=== PATIENT | female | born 1965 | race African-American/Black ===

== ENCOUNTER 2016-06-05 21:08 | Emergency (ER) | payer MEDICAID ==
[2016-06-05] MEDS ORDERED: ONDANSETRON 4 MG TAB.RAPDIS PO ONE (21:43)
--- NOTE | 2016-06-05 21:44 | ER Document Report ---
ED Medical Screen (RME) - General Chief Complaint: Constipation Stated Complaint: WEAKNESS Time seen by provider: 21:41 Mode of Arrival: Ambulatory Information source: Patient Notes: 51-year-old female complaining of nausea, vomiting, and diarrhea with low abdominal pain discomfort.. sHe does not feel well. She has a history of C. difficile and MS. TRAVEL OUTSIDE OF THE [place] IN LAST 30 DAYS: No - Related Data Allergies/Adverse Reactions: cefazolin sodium [From Ancef] Allergy (Intermediate, Verified 06/05/16 21:45) Nausea latex [Latex] Allergy (Verified 06/05/16 21:45) rash Past Medical History - Past Medical History Cardiac Medical History: Reports: Hx Hypertension Denies: Hx Coronary Artery Disease, Hx Heart Attack Pulmonary Medical History: Denies: Hx Asthma, Hx Bronchitis, Hx COPD, Hx Pneumonia Neurological Medical History: Reports: Hx Cerebrovascular Accident - july 2015 , Hx Migraine. Denies: Hx Seizures Endocrine Medical History: Reports: Hx Hypothyroidism GI Medical History: Reports: Hx Irritable Bowel. Denies: Hx Crohn's Disease, Hx Gastroesophageal Reflux Disease, Hx Hiatal Hernia, Hx Liver Failure, Hx Ulcer Musculoskeltal Medical History: Reports Hx Arthritis, Denies Hx Fibromyalgia, Denies Hx Multiple Sclerosis, Denies Hx Muscular Dystrophy, Reports Hx Muscle Spasm, Reports Hx Musculoskeletal Deformity, Reports Hx Musculoskeletal Trauma Psychiatric Medical History: Reports: Hx Anxiety Denies: Hx Bipolar Disorder, Hx Dementia, Hx Depression, Hx Post Traumatic Stress Disorder, Hx Schizophrenia Traumatic Medical History: Reports: Hx Fractures Infectious Medical History: Reports: Hx C-Diff. Denies: Hx HIV Past Surgical History: Reports: Hx Appendectomy, Hx Breast Surgery - reduction, Hx Section - x 2, Hx Cholecystectomy, Hx Gynecologic Surgery - D & C, Hx Orthopedic Surgery - right ankle, lumbar spine, Hx Thyroid Surgery - parathyroid and part of thyroid, Hx Tubal Ligation. Denies: Hx Bowel Surgery, Hx Colostomy, Hx Coronary Artery Bypass Graft, Hx Gastric Bypass Surgery, Hx Herniorrhaphy, Hx Hysterectomy, Hx Mastectomy, Hx Pacemaker, Hx Tonsillectomy - Immunizations Immunizations up to date: Yes Hx Diphtheria, Pertussis, Tetanus Vaccination: Yes Physical Exam - Vital signs Vitals: Temp Pulse Resp BP Pulse Ox 98.0 F 91 16 121/78 100 06/05/16 21:27 06/05/16 21:27 06/05/16 21:27 06/05/16 21:27 06/05/16 21:27 Course - Vital Signs Vital signs: Temp Pulse Resp BP Pulse Ox 98.0 F 91 16 121/78 100 06/05/16 21:27 06/05/16 21:27 06/05/16 21:27 06/05/16 21:27 06/05/16 21:27
[2016-06-05 22:27] LABS: ABSOLUTE BASOPHILS # (AUTO) 0.1 10^3/uL (0.0-0.2); ABSOLUTE EOSINOPHILS # (AUTO) 0.5 10^3/uL (0.0-0.6); ABSOLUTE LYMPHOCYTES (AUTO) 4.9 10^3/uL (0.5-4.7); ABSOLUTE MONOCYTES (AUTO) 0.8 10^3/uL (0.1-1.4); ABSOLUTE NEUT (AUTO) 4.5 10^3/uL (1.7-8.2); BASOPHILS % (AUTO) 0.7 % (0-2); EOSINOPHILS % (AUTO) 4.4 % (0-6); LYMPHOCYTES % (AUTO) 45.4 % (13-45); MEAN CORPUSCULAR HEMOGLOBIN 28.4 pg (27.0-33.4); MEAN CORPUSCULAR HGB CONC 33.3 g/dL (32.0-36.0); MEAN CORPUSCULAR VOLUME 85 fl (80-97); MONOCYTES % (AUTO) 7.6 % (3-13); RED BLOOD COUNT 4.22 10^6/uL (3.72-5.28); RED CELL DISTRIBUTION WIDTH 13.6 % (11.5-14.0); SEGMENTED NEUTROPHILS % (AUTO) 41.9 % (42-78); WHITE BLOOD COUNT 10.7 10^3/uL (4.0-10.5)
[2016-06-05 22:39] LABS: ALANINE AMINOTRANSFERASE 25 U/L (9-52); ALBUMIN 4.8 g/dL (3.5-5.0); ALKALINE PHOSPHATASE 97 U/L (38-126); ANION GAP 14 (5-19); ASPARTATE AMINO TRANSFERASE 19 U/L (14-36); BILIRUBIN,TOTAL 0.3 mg/dL (0.2-1.3); BLOOD UREA NITROGEN 20 mg/dL (7-20); CALCIUM 9.8 mg/dL (8.4-10.2); CARBON DIOXIDE 31 mmol/L (22-30); CHLORIDE 99 mmol/L (98-107); CREATININE RESULT 0.96 mg/dL (0.52-1.25); GLUCOSE 72 mg/dL (75-110); POTASSIUM 3.5 mmol/L (3.6-5.0); TOTAL PROTEIN 7.8 g/dL (6.3-8.2)
[2016-06-05 22:39] LABS: APPEARANCE,URINE SLIGHTLY-CLOUDY; BILIRUBIN,URINE NEGATIVE (NEGATIVE); GLUCOSE, URINE NEGATIVE (NEGATIVE); KETONES,URINE TRACE mg/dL (NEGATIVE); LEUKOCYTE ESTERASE,URINE LARGE (NEGATIVE); NITRITE,URINE NEGATIVE (NEGATIVE); PROTEIN,URINE NEGATIVE (NEGATIVE); URINE SPECIFIC GRAVITY 1.033; UROBILINOGEN,URINE NEGATIVE mg/dL (<2.0)
--- NOTE | 2016-06-06 00:37 | ER Document Report ---
ED General - General Chief Complaint: Constipation Stated Complaint: WEAKNESS Mode of Arrival: Ambulatory Notes: Patient is a 51-year-old female presents for complaints of constipation. She says that she's also been a little bit dizzy. She does have MS. She's diagnosed back in November. She says it's been 2 weeks since she's had a normal bowel movement. Today she drinks prune juice which latter to have some watery stools. No blood in her stool. She did have C. difficile 2 years ago. No fevers. No vomiting. No diarrhea. No new focal neurologic deficits. Mild abdominal pain. No other complaints at this time. She says she took magnesium saturates last week but has not taken anything else sense for her constipation other than the prune juice. She has been passing gas without difficulty. TRAVEL OUTSIDE OF THE [place] IN LAST 30 DAYS: No - Related Data Allergies/Adverse Reactions: cefazolin sodium [From Ancef] Allergy (Intermediate, Verified 06/05/16 21:45) Nausea latex [Latex] Allergy (Verified 06/05/16 21:45) rash Past Medical History - General Information source: Patient - Social History Smoking Status: Current Every Day Smoker Chew tobacco use (# tins/day): No Frequency of alcohol use: Social Drug Abuse: None Family History: CAD, CVA, Hyperlipidemia, Hypertension Patient has suicidal ideation: No Patient has homicidal ideation: No - Past Medical History Cardiac Medical History: Reports: Hx Hypertension Denies: Hx Coronary Artery Disease, Hx Heart Attack Pulmonary Medical History: Denies: Hx Asthma, Hx Bronchitis, Hx COPD, Hx Pneumonia Neurological Medical History: Reports: Hx Cerebrovascular Accident - july 2015 , Hx Migraine. Denies: Hx Seizures Endocrine Medical History: Reports: Hx Hypothyroidism GI Medical History: Reports: Hx Irritable Bowel. Denies: Hx Crohn's Disease, Hx Gastroesophageal Reflux Disease, Hx Hiatal Hernia, Hx Liver Failure, Hx Ulcer Musculoskeltal Medical History: Reports Hx Arthritis, Denies Hx Fibromyalgia, Denies Hx Multiple Sclerosis, Denies Hx Muscular Dystrophy, Reports Hx Muscle Spasm, Reports Hx Musculoskeletal Deformity, Reports Hx Musculoskeletal Trauma Psychiatric Medical History: Reports: Hx Anxiety Denies: Hx Bipolar Disorder, Hx Dementia, Hx Depression, Hx Post Traumatic Stress Disorder, Hx Schizophrenia Traumatic Medical History: Reports: Hx Fractures Infectious Medical History: Reports: Hx C-Diff. Denies: Hx HIV Past Surgical History: Reports: Hx Appendectomy, Hx Breast Surgery - reduction, Hx Section - x 2, Hx Cholecystectomy, Hx Gynecologic Surgery - D & C, Hx Orthopedic Surgery - right ankle, lumbar spine, Hx Thyroid Surgery - parathyroid and part of thyroid, Hx Tubal Ligation. Denies: Hx Bowel Surgery, Hx Colostomy, Hx Coronary Artery Bypass Graft, Hx Gastric Bypass Surgery, Hx Herniorrhaphy, Hx Hysterectomy, Hx Mastectomy, Hx Pacemaker, Hx Tonsillectomy - Immunizations Immunizations up to date: Yes Hx Diphtheria, Pertussis, Tetanus Vaccination: Yes Review of Systems - Review of Systems Notes: My Normal Review Basic REVIEW OF SYSTEMS: CONSTITUTIONAL : Denies fever, chills, or sweats. Denies recent illness. EENT: Denies eye, ear, throat, or mouth pain or symptoms. Denies nasal or sinus congestion. RESPIRATORY: Denies cough, cold, or chest congestion. Denies shortness of breath, difficulty breathing, or wheezing. GASTROINTESTINAL: Mild diffuse abdominal pain. Denies nausea, vomiting, or diarrhea. Denies constipation GENITOURINARY: Denies difficulty urinating, painful urination, burning, frequency, or blood in urine. MUSCULOSKELETAL: Denies neck or back pain or joint pain or swelling. SKIN: Denies rash or skin lesions. NEUROLOGICAL: Denies altered mental status or loss of consciousness. Denies headache. Denies weakness or paralysis or loss of use of either side. Denies problems with gait or speech. Denies sensory or motor loss. ALL OTHER SYSTEMS REVIEWED AND NEGATIVE. Physical Exam - Vital signs Vitals: Temp Pulse Resp BP Pulse Ox 98.0 F 91 16 121/78 100 06/05/16 21:27 06/05/16 21:27 06/05/16 21:27 06/05/16 21:27 06/05/16 21:27 - Notes Notes: General Appearance: Well nourished, alert, cooperative, no acute distress, mild obvious discomfort. Well-appearing. Vitals: reviewed, See vital signs table. Head: no swelling or tenderness to the head Eyes: PERRL, EOMI, Conjuctiva clear Mouth: No decreasd moisture Neck: Supple, no neck tenderness, No thyromegaly Lungs: No wheezing, No rales, No rhonci, No accessory muscle use, good air exchange bilaterally. Heart: Normal rate, Regular rythm, No murmur, no rub Abdomen: Normal BS, soft, No rigidity, mild diffuse abdominal tenderness to palpation, No guarding, no rebound, no abdominal masses, no organomegaly Extremities: strength 5/5 in all extremities, good pulses in all extremities, no swelling or tenderness in the extremities, no edema. Skin: warm, dry, appropriate color, no rash Neuro: speech clear, oriented x 3, normal affect, responds appropriately to questions. Course - Vital Signs Vital signs: Temp Pulse Resp BP Pulse Ox 98.0 F 91 16 121/78 100 06/05/16 21:27 06/05/16 21:27 06/05/16 21:27 06/05/16 21:27 06/05/16 21:27 - Laboratory Result Diagrams: 06/05/16 21:50 06/05/16 21:50 Laboratory results interpreted by me: 06/05/16 06/05/16 06/05/16 21:50 21:50 22:20 WBC 10.7 H Seg Neutrophils % 41.9 L Lymphocytes % 45.4 H Absolute Lymphocytes 4.9 H Potassium 3.5 L Carbon Dioxide 31 H Glucose 72 L Urine Ketones TRACE H Urine Blood SMALL H Ur Leukocyte Esterase LARGE H - Transfer of Care Notes: 06/06/16 02:05 Patient does not have much stool on abdominal exam. She does have a lot of gas. Her urinalysis does show some evidence of infection. We will place on Cipro. She does request some for pain. I informed her that I can only give her a few stronger pain pills for pain as taken a longer will cause worsening constipation. She is understanding of this. She looks well and exam. Abdomen is soft and minimally tender. The rest of her lab to evaluation is non- concerning. Patient will be discharged home. She strongly encouraged follow closely with Dr. Haider, her physician, for closer evaluation. She's encouraged return to ER immediately if she has worsening pain, fevers, vomiting , or feels unwell. Patient agrees with plan and will be discharged home. Dictation of this chart was performed using voice recognition software; therefore, there may be some unintended grammatical errors. Discharge - Discharge Clinical Impression: Abdominal pain Qualifiers: Abdominal location: generalized Qualified Code(s): R10.84 - Generalized abdominal pain UTI (urinary tract infection) Qualifiers: Urinary tract infection type: site unspecified Hematuria presence: without hematuria Qualified Code(s): N39.0 - Urinary tract infection, site not specified Condition: Good Disposition: HOME, SELF-CARE Additional Instructions: ABDOMINAL PAIN: There are many causes of abdominal pain. Pain can mean a serious problem requiring surgery (such as appendicitis). It can also be an innocent problem that goes away on its own (such as a viral infection). Often, time must pass to determine the cause of pain. The physician does not feel that hospitalization is necessary, at present. Things may change within the next 24 hours. Call the doctor or come back for re- examination if any problems occur, such as: (1) Pain that becomes more severe, steady, or becomes concentrated in one specific area. Also, pain that is more severe with movement or coughing. (2) Vomiting that persists or becomes more frequent. (3) Blood in the vomitus, urine, or bowel movements. Blood in the stool may have a tarry or black appearance. (4) Shaking chills or fever greater than 100 degrees F. (5) The abdomen becomes more distended or swollen. (6) Bowel movements cease. (7) Failure to improve as expected. NORMAL EXAM AND WORKUP: At this time, your examination and workup show no significant abnormality. No significant abnormal physical findings are noted. All laboratory, EKG, and imaging (x-ray) studies that were ordered show no significant abnormality. Although your examination and all studies that were ordered showed no significant abnormal finding, there are no examinations and no studies that are 100% accurate. There is always the possibility that some abnormality could exist and not be detected with physical examination or within the limits and capabilities of laboratory and other studies. You should return or follow up as you were instructed on your visit today for further evaluation if your symptoms do not resolve. ANTINAUSEA MEDICATION: You have been given a medication to suppress nausea and vomiting. This type of medication can be given as a shot, pill, or suppository. It will usually last for many hours. Pills and shots usually last six to eight hours, suppositories last about 12 hours. For the typical illness, only one or two doses of the medication may be necessary. Mild lightheadedness may occur. This type of medicine can cause drowsiness. Do not drive or operate dangerous machinery while under its influence. Do not mix with alcohol. See your doctor at once if you have muscle spasms or tightness, or uncontrollable motions (particularly of the neck, mouth, or jaw). Persistent vomiting or severe lightheadedness should also be evaluated by the physician. ORAL NARCOTIC MEDICATION: You have been given a prescription for pain control. This medication is a narcotic. It's best taken with food, as nausea can result if taken on an empty stomach. Don't operate machinery or drive within six hours of taking this medication. Do not combine this medicine with alcohol, or with any medication which can cause sedation (such as cold tablets or sleeping pills) unless you get permission from the physician. Narcotics tend to cause constipation. If possible, drink plenty of fluids and eat a diet high in fiber and fruits. Please be aware that prescription narcotics also have the potential for abuse. People become addicted to these medications because of the general sense of wellbeing that they induce. This feeling along with a significant reduction in tension, anxiety, and aggression provides a stimulating seductive quality to these drugs. Once your pain is under control, we encourage you to discard your unused narcotics. FOLLOW-UP CARE: If you have been referred to a physician for follow-up care, call the physician s office for an appointment as you were instructed or within the next two days. If you experience worsening or a significant change in your symptoms, notify the physician immediately or return to the Emergency Department at any time for re-evaluation. FOLLOW-UP CARE: You should return for re-evaluation in 24-48 hours if you continue to have pain. This follow-up visit is important. If you are unable to return, or feel that the return visit is unnecessary, please call us. Please take metamucil daily. Please take the antibiotic as prescribed. Follow up with Dr. Adler in 2-3 days for close reevaluation. Prescriptions: Ciprofloxacin HCl [Cipro 500 mg Tablet] 500 mg PO BID #6 tablet Referrals: LIYAH CHUNG MD [Primary Care Provider] - 06/08/16
[2016-06-06] MEDS ORDERED: CIPROFLOXACIN HCL 500 MG TABLET PO ONE (02:00)
[2016-06-06] MEDS ORDERED: HYDROCODONE/ACETAMINOPHEN 5-325 MG 6 TAB/DSPK PO PRN (02:00)
[2016-06-06 02:33] VITALS: BP 119/80
== END 2016-06-06 02:31 | disposition home or self-care (01) ==
LOC: ER 21:08
DX: N39.0 Urinary tract infection, site not specified (principal); R10.84 Generalized abdominal pain; R14.3 Flatulence; R19.4 Change in bowel habit; R42 Dizziness and giddiness; G35 Multiple sclerosis; F17.200 Nicotine dependence, unspecified, uncomplicated; I10 Essential (primary) hypertension; Z88.1 Allergy status to other antibiotic agents; Z91.040 Latex allergy status; Z86.73 Personal history of transient ischemic attack (TIA), and cerebral infarction without residual deficits; Z87.19 Personal history of other diseases of the digestive system; Z90.49 Acquired absence of other specified parts of digestive tract
CPT/HCPCS: 99283; 36415; 87086; 85025; 80053; 81001; 87493 ×2; 74000; S0119

== ENCOUNTER 2016-06-28 11:39 | Emergency (ER) | payer MEDICAID ==
--- NOTE | 2016-06-28 12:15 | ER Document Report ---
ED Medical Screen (RME) - General Chief Complaint: Pain All Over Stated Complaint: BODY ACHES, MUSCLE PAIN Mode of Arrival: Ambulatory Information source: Patient Notes: 51-year-old female presents to the emergency department complaining of generalized body aches secondary to MS after receiving tysabri infusion approximately 5 days ago. I have greeted and performed a rapid initial assessment of this patient. A comprehensive ED assessment and evaluation of the patient, analysis of test results and completion of the medical decision making process will be conducted by additional ED providers. TRAVEL OUTSIDE OF THE [place] IN LAST 30 DAYS: No - Related Data Allergies/Adverse Reactions: cefazolin sodium [From Ancef] Allergy (Intermediate, Verified 06/28/16 12:10) Nausea latex [Latex] Allergy (Verified 06/28/16 12:10) rash Past Medical History - Social History Chew tobacco use (# tins/day): No Frequency of alcohol use: Social Drug Abuse: None - Past Medical History Cardiac Medical History: Reports: Hx Hypertension Denies: Hx Coronary Artery Disease, Hx Heart Attack Pulmonary Medical History: Denies: Hx Asthma, Hx Bronchitis, Hx COPD, Hx Pneumonia Neurological Medical History: Reports: Hx Cerebrovascular Accident - july 2015 , Hx Migraine. Denies: Hx Seizures Endocrine Medical History: Reports: Hx Hypothyroidism Renal/ Medical History: Denies: Hx Peritoneal Dialysis GI Medical History: Reports: Hx Irritable Bowel. Denies: Hx Crohn's Disease, Hx Gastroesophageal Reflux Disease, Hx Hiatal Hernia, Hx Liver Failure, Hx Ulcer Musculoskeltal Medical History: Reports Hx Arthritis, Denies Hx Fibromyalgia, Denies Hx Multiple Sclerosis, Denies Hx Muscular Dystrophy, Reports Hx Muscle Spasm, Reports Hx Musculoskeletal Deformity, Reports Hx Musculoskeletal Trauma Psychiatric Medical History: Reports: Hx Anxiety Denies: Hx Bipolar Disorder, Hx Dementia, Hx Depression, Hx Post Traumatic Stress Disorder, Hx Schizophrenia Traumatic Medical History: Reports: Hx Fractures Infectious Medical History: Reports: Hx C-Diff. Denies: Hx HIV Past Surgical History: Reports: Hx Appendectomy, Hx Breast Surgery - reduction, Hx Section - x 2, Hx Cholecystectomy, Hx Gynecologic Surgery - D & C, Hx Orthopedic Surgery - right ankle, lumbar spine, Hx Thyroid Surgery - parathyroid and part of thyroid, Hx Tubal Ligation. Denies: Hx Bowel Surgery, Hx Colostomy, Hx Coronary Artery Bypass Graft, Hx Gastric Bypass Surgery, Hx Herniorrhaphy, Hx Hysterectomy, Hx Mastectomy, Hx Pacemaker, Hx Tonsillectomy - Immunizations Immunizations up to date: Yes Hx Diphtheria, Pertussis, Tetanus Vaccination: Yes Physical Exam - Vital signs Vitals: Temp Pulse Resp BP Pulse Ox 97.8 F 79 18 121/81 97 06/28/16 12:02 06/28/16 12:02 06/28/16 12:02 06/28/16 12:02 06/28/16 12:02 - General General appearance: Alert In distress: None - Respiratory Respiratory status: No respiratory distress - Cardiovascular Pulses: Normal: Radial Normal capillary refill: Yes Course - Vital Signs Vital signs: Temp Pulse Resp BP Pulse Ox 97.8 F 79 18 121/81 97 06/28/16 12:02 06/28/16 12:02 06/28/16 12:02 06/28/16 12:02 06/28/16 12:02
[2016-06-28 13:10] LABS: ABSOLUTE BASOPHILS # (AUTO) 0.1 10^3/uL (0.0-0.2); ABSOLUTE EOSINOPHILS # (AUTO) 0.3 10^3/uL (0.0-0.6); ABSOLUTE LYMPHOCYTES (AUTO) 3.9 10^3/uL (0.5-4.7); ABSOLUTE MONOCYTES (AUTO) 0.7 10^3/uL (0.1-1.4); ABSOLUTE NEUT (AUTO) 5.1 10^3/uL (1.7-8.2); BASOPHILS % (AUTO) 0.7 % (0-2); HEMATOCRIT 34.8 % (36.0-47.0); HEMOGLOBIN 11.8 g/dL (12.0-15.5); HGB HCT DIFFERENCE 0.6; LYMPHOCYTES % (AUTO) 38.5 % (13-45); MEAN CORPUSCULAR HEMOGLOBIN 28.7 pg (27.0-33.4); MEAN CORPUSCULAR HGB CONC 33.9 g/dL (32.0-36.0); MEAN CORPUSCULAR VOLUME 85 fl (80-97); MONOCYTES % (AUTO) 7.2 % (3-13); RED BLOOD COUNT 4.11 10^6/uL (3.72-5.28); SEGMENTED NEUTROPHILS % (AUTO) 50.6 % (42-78); WHITE BLOOD COUNT 10.2 10^3/uL (4.0-10.5)
[2016-06-28 13:27] LABS: ALANINE AMINOTRANSFERASE 53 U/L (9-52); ALBUMIN 4.8 g/dL (3.5-5.0); ALKALINE PHOSPHATASE 129 U/L (38-126); ANION GAP 12 (5-19); ASPARTATE AMINO TRANSFERASE 23 U/L (14-36); BILIRUBIN,TOTAL 0.5 mg/dL (0.2-1.3); BLOOD UREA NITROGEN 20 mg/dL (7-20); CALCIUM 9.8 mg/dL (8.4-10.2); CARBON DIOXIDE 31 mmol/L (22-30); CHLORIDE 98 mmol/L (98-107); CREATININE RESULT 0.93 mg/dL (0.52-1.25); GLUCOSE 103 mg/dL (75-110); POTASSIUM 3.9 mmol/L (3.6-5.0); SODIUM 140.7 mmol/L (137-145); TOTAL PROTEIN 7.7 g/dL (6.3-8.2)
[2016-06-28 13:30] LABS: APPEARANCE,URINE CLEAR; BILIRUBIN,URINE NEGATIVE (NEGATIVE); GLUCOSE, URINE NEGATIVE (NEGATIVE); KETONES,URINE NEGATIVE (NEGATIVE); LEUKOCYTE ESTERASE,URINE SMALL (NEGATIVE); NITRITE,URINE NEGATIVE (NEGATIVE); PROTEIN,URINE NEGATIVE (NEGATIVE); URINE SPECIFIC GRAVITY 1.016; UROBILINOGEN,URINE NEGATIVE mg/dL (<2.0)
[2016-06-28] MEDS ORDERED: OXYCODONE-ACETAMINOPHEN 5-325 MG TABLET PO ONE (13:37)
--- NOTE | 2016-06-28 14:49 | ER Document Report ---
ED General - General Chief Complaint: Pain All Over Stated Complaint: BODY ACHES, MUSCLE PAIN Mode of Arrival: Ambulatory Information source: Patient Notes: Patient presents to the emergency department with complaints of body cramps and weakness. She reports pain cramps since yesterday. Denies fever vomiting diarrhea. She reports she is hurting so bad she went to her mother's house today and cried. Patient does have a history of MS. TRAVEL OUTSIDE OF THE [place] IN LAST 30 DAYS: No - HPI Onset: Yesterday Onset/Duration: Sudden, Persistent Quality of pain: Achy, Cramping Severity: Moderate Pain Level: 4 Associated symptoms: Nausea Exacerbated by: Denies Relieved by: Denies Similar symptoms previously: No Recently seen / treated by doctor: No - Related Data Allergies/Adverse Reactions: cefazolin sodium [From Ancef] Allergy (Intermediate, Verified 06/28/16 12:10) Nausea latex [Latex] Allergy (Verified 06/28/16 12:10) rash Past Medical History - General Information source: Patient Last Menstrual Period: btl - Social History Smoking Status: Current Every Day Smoker Cigarette use (# per day): Yes Chew tobacco use (# tins/day): No Frequency of alcohol use: Social Drug Abuse: Marijuana Lives with: Family Family History: CAD, CVA, Hyperlipidemia, Hypertension Patient has suicidal ideation: No Patient has homicidal ideation: No - Past Medical History Cardiac Medical History: Reports: Hx Hypertension Denies: Hx Coronary Artery Disease, Hx Heart Attack Pulmonary Medical History: Denies: Hx Asthma, Hx Bronchitis, Hx COPD, Hx Pneumonia Neurological Medical History: Reports: Hx Cerebrovascular Accident - july 2015 , Hx Migraine. Denies: Hx Seizures Endocrine Medical History: Reports: Hx Hypothyroidism Renal/ Medical History: Denies: Hx Peritoneal Dialysis GI Medical History: Reports: Hx Irritable Bowel. Denies: Hx Crohn's Disease, Hx Gastroesophageal Reflux Disease, Hx Hiatal Hernia, Hx Liver Failure, Hx Ulcer Musculoskeltal Medical History: Reports Hx Arthritis, Denies Hx Fibromyalgia, Reports Hx Multiple Sclerosis, Denies Hx Muscular Dystrophy, Reports Hx Muscle Spasm, Reports Hx Musculoskeletal Deformity, Reports Hx Musculoskeletal Trauma Psychiatric Medical History: Reports: Hx Anxiety Denies: Hx Bipolar Disorder, Hx Dementia, Hx Depression, Hx Post Traumatic Stress Disorder, Hx Schizophrenia Traumatic Medical History: Reports: Hx Fractures Infectious Medical History: Reports: Hx C-Diff. Denies: Hx HIV Past Surgical History: Reports: Hx Appendectomy, Hx Breast Surgery - reduction, Hx Section - x 2, Hx Cholecystectomy, Hx Gynecologic Surgery - D & C, Hx Orthopedic Surgery - right ankle, lumbar spine, Hx Thyroid Surgery - parathyroid and part of thyroid, Hx Tubal Ligation. Denies: Hx Bowel Surgery, Hx Colostomy, Hx Coronary Artery Bypass Graft, Hx Gastric Bypass Surgery, Hx Herniorrhaphy, Hx Hysterectomy, Hx Mastectomy, Hx Pacemaker, Hx Tonsillectomy - Immunizations Immunizations up to date: Yes Hx Diphtheria, Pertussis, Tetanus Vaccination: Yes Review of Systems - Review of Systems Notes: Review HPI for review of systems., All other systems negative Physical Exam - Vital signs Vitals: Temp Pulse Resp BP Pulse Ox 97.8 F 79 18 121/81 97 06/28/16 12:02 06/28/16 12:02 06/28/16 12:02 06/28/16 12:02 06/28/16 12:02 - Notes Notes: PHYSICAL EXAMINATION: GENERAL: Well-appearing and in no acute distress nontoxic looking HEAD: Atraumatic, normocephalic. EYES: Pupils equal round , extraocular movements intact, sclera anicteric, conjunctiva are normal. ENT: nares patent, oropharynx clear without exudates. Moist mucous membranes. NECK: Normal range of motion, supple without lymphadenopathy LUNGS: CTAB and equal. No wheezes rales or rhonchi. HEART: Regular rate and rhythm without murmurs ABDOMEN: Soft, no tenderness. No guarding, no rebound EXTREMITIES: Normal range of motion, no pitting edema. No cyanosis. NEUROLOGICAL: Cranial nerves grossly intact. Normal sensory/motor exams. PSYCH: Normal mood, normal affect. SKIN: Warm, Dry, normal turgor, no rashes or lesions noted Course - Re-evaluation Re-evalutation: 06/28/16 Patient instructed on all labs. Patient reports she feels better after Percocet. She was instructed on narcotics potential for constipation. She was also instructed to follow up with her provider for further evaluation. She verbalized understanding. I have consulted the attending provider dr mcdonnell per [facility] guidelines - Vital Signs Vital signs: Temp Pulse Resp BP Pulse Ox 98.1 F 84 14 122/77 94 06/28/16 15:00 06/28/16 15:00 06/28/16 15:00 06/28/16 15:00 06/28/16 15:00 - Laboratory Result Diagrams: 06/28/16 12:50 06/28/16 12:50 Laboratory results interpreted by me: 06/28/16 06/28/16 06/28/16 12:50 12:50 13:10 Hgb 11.8 L Hct 34.8 L Carbon Dioxide 31 H ALT 53 H Alkaline Phosphatase 129 H Urine Blood SMALL H Ur Leukocyte Esterase SMALL H Discharge - Discharge Clinical Impression: Body aches, elevated blood pressure Condition: Stable Disposition: HOME, SELF-CARE Instructions: Oral Narcotic Medication ([facility]) Additional Instructions: *You have been evaluated for body aches *Take medication as prescribed *Follow up with your primary care provider within one week *Return to ED for worsening condition, changes, needs Prescriptions: Oxycodone HCl/Acetaminophen [Percocet 5-325 mg Tablet] 1 tab PO ASDIR PRN #10 tablet PRN Reason: Forms: Elevated Blood Pressure Referrals: LIYAH CHUNG MD [Primary Care Provider] - Follow up in 1 week
[2016-06-28 15:10] VITALS: BP 122/77
--- NOTE | 2016-06-28 22:14 | EKG REPORT ---
SEVERITY:- NORMAL ECG - SINUS RHYTHM : Confirmed by: Reshma Galvez 28-Jun-2016 22:13:05
== END 2016-06-28 15:00 | disposition home or self-care (01) ==
LOC: ER 11:39
DX: G35 Multiple sclerosis (principal); M79.1 Myalgia; R25.2 Cramp and spasm; I10 Essential (primary) hypertension; R53.1 Weakness; R11.0 Nausea; F17.210 Nicotine dependence, cigarettes, uncomplicated; Z88.1 Allergy status to other antibiotic agents; Z91.040 Latex allergy status; Z86.73 Personal history of transient ischemic attack (TIA), and cerebral infarction without residual deficits
CPT/HCPCS: 36415; 80053; 81001; 85025; 93005; 93010; 99283

== ENCOUNTER 2016-08-29 14:11 | Emergency (ER) | payer MEDICAID ==
--- NOTE | 2016-08-29 15:39 | ER Document Report ---
ED Medical Screen (RME) - General Chief Complaint: Headache Stated Complaint: WEAKNESS Notes: This 51-year-old female patient with history of MS, migraines, reports intermittent symptoms for a week which got more constant this afternoon. Headache, blurry vision, weakness, trouble walking. So right shoulder feels stiff. She gets her regular treatment with [facility]. I have greeted and performed a rapid initial assessment of this patient. A comprehensive ED assessment and evaluation of the patient, analysis of test results and completion of the medical decision making process will be conducted by additional ED providers. TRAVEL OUTSIDE OF THE [place] IN LAST 30 DAYS: No - Related Data Allergies/Adverse Reactions: cefazolin sodium [From Ancef] Allergy (Intermediate, Verified 08/29/16 14:42) Nausea latex [Latex] Allergy (Verified 08/29/16 14:42) rash Past Medical History - Past Medical History Cardiac Medical History: Reports: Hx Hypertension Denies: Hx Coronary Artery Disease, Hx Heart Attack Pulmonary Medical History: Denies: Hx Asthma, Hx Bronchitis, Hx COPD, Hx Pneumonia Neurological Medical History: Reports: Hx Cerebrovascular Accident - july 2015 , Hx Migraine. Denies: Hx Seizures Endocrine Medical History: Reports: Hx Hypothyroidism Renal/ Medical History: Denies: Hx Peritoneal Dialysis GI Medical History: Reports: Hx Irritable Bowel. Denies: Hx Crohn's Disease, Hx Gastroesophageal Reflux Disease, Hx Hiatal Hernia, Hx Liver Failure, Hx Ulcer Musculoskeltal Medical History: Reports Hx Arthritis, Denies Hx Fibromyalgia, Reports Hx Multiple Sclerosis, Denies Hx Muscular Dystrophy, Reports Hx Muscle Spasm, Reports Hx Musculoskeletal Deformity, Reports Hx Musculoskeletal Trauma Psychiatric Medical History: Reports: Hx Anxiety Denies: Hx Bipolar Disorder, Hx Dementia, Hx Depression, Hx Post Traumatic Stress Disorder, Hx Schizophrenia Traumatic Medical History: Reports: Hx Fractures Infectious Medical History: Reports: Hx C-Diff. Denies: Hx HIV Past Surgical History: Reports: Hx Appendectomy, Hx Breast Surgery - reduction, Hx Section - x 2, Hx Cholecystectomy, Hx Gynecologic Surgery - D & C, Hx Orthopedic Surgery - right ankle, lumbar spine, Hx Thyroid Surgery - parathyroid and part of thyroid, Hx Tubal Ligation. Denies: Hx Bowel Surgery, Hx Colostomy, Hx Coronary Artery Bypass Graft, Hx Gastric Bypass Surgery, Hx Herniorrhaphy, Hx Hysterectomy, Hx Mastectomy, Hx Pacemaker, Hx Tonsillectomy - Immunizations Immunizations up to date: Yes Hx Diphtheria, Pertussis, Tetanus Vaccination: Yes Physical Exam - Vital signs Vitals: Temp Pulse Resp BP Pulse Ox 99.4 F 99 16 132/92 H 97 08/29/16 14:42 08/29/16 14:42 08/29/16 14:42 08/29/16 14:42 08/29/16 14:42 Course - Vital Signs Vital signs: Temp Pulse Resp BP Pulse Ox 99.4 F 99 16 132/92 H 97 08/29/16 14:42 08/29/16 14:42 08/29/16 14:42 08/29/16 14:42 08/29/16 14:42
[2016-08-29 16:55] LABS: ABSOLUTE BASOPHILS # (AUTO) 0.1 10^3/uL (0.0-0.2); ABSOLUTE EOSINOPHILS # (AUTO) 0.4 10^3/uL (0.0-0.6); ABSOLUTE LYMPHOCYTES (AUTO) 4.5 10^3/uL (0.5-4.7); ABSOLUTE MONOCYTES (AUTO) 0.7 10^3/uL (0.1-1.4); ABSOLUTE NEUT (AUTO) 5.3 10^3/uL (1.7-8.2); BASOPHILS % (AUTO) 0.5 % (0-2); EOSINOPHILS % (AUTO) 3.9 % (0-6); HEMATOCRIT 34.9 % (36.0-47.0); HEMOGLOBIN 11.8 g/dL (12.0-15.5); HGB HCT DIFFERENCE 0.5; LYMPHOCYTES % (AUTO) 41.1 % (13-45); MEAN CORPUSCULAR HEMOGLOBIN 28.7 pg (27.0-33.4); MEAN CORPUSCULAR HGB CONC 33.7 g/dL (32.0-36.0); MEAN CORPUSCULAR VOLUME 85 fl (80-97); MONOCYTES % (AUTO) 6.2 % (3-13); RED CELL DISTRIBUTION WIDTH 14.1 % (11.5-14.0); SEGMENTED NEUTROPHILS % (AUTO) 48.3 % (42-78); WHITE BLOOD COUNT 10.9 10^3/uL (4.0-10.5)
[2016-08-29 17:03] LABS: APPEARANCE,URINE SLIGHTLY-CLOUDY; BILIRUBIN,URINE NEGATIVE (NEGATIVE); GLUCOSE, URINE NEGATIVE (NEGATIVE); KETONES,URINE NEGATIVE (NEGATIVE); LEUKOCYTE ESTERASE,URINE MODERATE (NEGATIVE); NITRITE,URINE NEGATIVE (NEGATIVE); PROTEIN,URINE NEGATIVE (NEGATIVE); URINE SPECIFIC GRAVITY 1.032; UROBILINOGEN,URINE NEGATIVE mg/dL (<2.0)
[2016-08-29 17:14] LABS: ALANINE AMINOTRANSFERASE 23 U/L (9-52); ALBUMIN 4.4 g/dL (3.5-5.0); ALKALINE PHOSPHATASE 96 U/L (38-126); ANION GAP 12 (5-19); ASPARTATE AMINO TRANSFERASE 18 U/L (14-36); BILIRUBIN,DIRECT 0.3 mg/dL (0.0-0.4); BILIRUBIN,TOTAL 0.3 mg/dL (0.2-1.3); BLOOD UREA NITROGEN 24 mg/dL (7-20); CALCIUM 9.4 mg/dL (8.4-10.2); CARBON DIOXIDE 28 mmol/L (22-30); CHLORIDE 104 mmol/L (98-107); CREATININE RESULT 0.85 mg/dL (0.52-1.25); GLUCOSE 118 mg/dL (75-110); SODIUM 144.1 mmol/L (137-145); TOTAL PROTEIN 7.4 g/dL (6.3-8.2)
[2016-08-29] MEDS ORDERED: NALOXONE HCL INJ 2 MG/2 ML DISP.SYRIN IV ONE (18:11)
[2016-08-29 18:24] LABS: URINE BARBITURATES SCREEN UNCONFIRMED POSITIVE; URINE METHADONE SCREEN NEGATIVE; URINE OPIATES LOW NEGATIVE; URINE PHENCYCLIDINE SCREEN NEGATIVE
--- NOTE | 2016-08-29 18:53 | ER Document Report ---
ED General <TAYLER PEREZ - Last Filed: 08/29/16 22:11> - General Mode of Arrival: Ambulatory Information source: Patient TRAVEL OUTSIDE OF THE [place] IN LAST 30 DAYS: No - HPI Onset: Other - see HPI note Similar symptoms previously: No Recently seen / treated by doctor: No <JAMES SOW - Last Filed: 08/29/16 22:15> <FARSHAD,BRIA - Last Filed: 08/30/16 12:21> - General Chief Complaint: Headache Stated Complaint: WEAKNESS Notes: Patient is a 51 year old female presenting to the ED for headache and blurry vision. Patient states these symptoms were onset tonight. Patient was assigned to the 30 hallway bed in this emergency department. I attempted to evaluate this patient multiple times that she was not at her bed and instead she was in room 7, which is where her mother was a patient. Patient walked back and forth from her bed to her mother's room in this emergency department with the nurses as witnesses. Patient's son is present at the bedside and states that the patient has been acting very abnormal. The son states that the patient has been eating and stacking lately and running into the walters in the hallway. Patient's son states that the patient is asking for people were not around and has been talking strangely. Patient claims she has a history of multiple sclerosis. Patient is altered and wants to be with her mother in the same room. Patient states that she takes Ambien at night. (JAMES SOW) - Related Data Allergies/Adverse Reactions: cefazolin sodium [From Ancef] Allergy (Intermediate, Verified 08/29/16 14:42) Nausea latex [Latex] Allergy (Verified 08/29/16 14:42) rash Past Medical History - General Information source: Patient - Social History Smoking Status: Current Every Day Smoker Chew tobacco use (# tins/day): No Frequency of alcohol use: Occasional Drug Abuse: None Family History: Reviewed & Not Pertinent, CAD, CVA, Hyperlipidemia, Hypertension Patient has suicidal ideation: No Patient has homicidal ideation: No - Past Medical History Cardiac Medical History: Reports: Hx Hypertension Neurological Medical History: Reports: Hx Cerebrovascular Accident - july 2015 , Hx Migraine Endocrine Medical History: Reports: Hx Hypothyroidism GI Medical History: Reports: Hx Irritable Bowel Musculoskeltal Medical History: Reports Hx Arthritis, Reports Hx Multiple Sclerosis, Reports Hx Muscle Spasm, Reports Hx Musculoskeletal Deformity, Reports Hx Musculoskeletal Trauma Psychiatric Medical History: Reports: Hx Anxiety Traumatic Medical History: Reports: Hx Fractures Infectious Medical History: Reports: Hx C-Diff Past Surgical History: Reports: Hx Appendectomy, Hx Breast Surgery - reduction, Hx Section - x 2, Hx Cholecystectomy, Hx Gynecologic Surgery - D & C, Hx Orthopedic Surgery - right ankle, lumbar spine, Hx Thyroid Surgery - parathyroid and part of thyroid, Hx Tubal Ligation - Immunizations Immunizations up to date: Yes Hx Diphtheria, Pertussis, Tetanus Vaccination: Yes <JAMES SOW - Last Filed: 08/29/16 22:15> Review of Systems - Review of Systems Constitutional: No symptoms reported EENT: See HPI, Blurred vision Cardiovascular: No symptoms reported Respiratory: No symptoms reported Gastrointestinal: No symptoms reported Genitourinary: No symptoms reported Female Genitourinary: No symptoms reported Musculoskeletal: No symptoms reported Skin: No symptoms reported Hematologic/Lymphatic: No symptoms reported Neurological/Psychological: See HPI, Headaches -: Yes All other systems reviewed and negative <JAMES SOW - Last Filed: 08/29/16 22:15> Physical Exam - Vital signs Interpretation: Normal - General General appearance: Other - sleepy and drowsy In distress: Mild - HEENT Head: Normocephalic, Atraumatic Eyes: Normal Pupils: PERRL Mucous membranes: Moist - Respiratory Respiratory status: No respiratory distress Chest status: Nontender Breath sounds: Normal Chest palpation: Normal - Cardiovascular Rhythm: Regular Heart sounds: Normal auscultation Murmur: No - Abdominal Inspection: Normal Distension: No distension Bowel sounds: Normal Tenderness: Nontender Organomegaly: No organomegaly - Back Back: Normal, Nontender - Extremities General upper extremity: Normal inspection, Normal ROM, Normal strength General lower extremity: Normal inspection, Normal ROM, Normal strength - Neurological Neuro grossly intact: Yes Cognition: Confused Orientation: AAOx4 Romero Coma Scale Eye Opening: Spontaneous Russell Coma Scale Verbal: Oriented Russell Coma Scale Motor: Obeys Commands Romero Coma Scale Total: 15 Speech: Normal - Psychological Associated symptoms: Normal affect, Normal mood - Skin Skin Temperature: Warm Skin Moisture: Dry <JAMES SOW - Last Filed: 08/29/16 22:15> Course - Laboratory Result Diagrams: 08/29/16 16:24 08/29/16 16:24 <TAYLER PEREZ - Last Filed: 08/29/16 22:11> - Laboratory Result Diagrams: 08/29/16 16:24 08/29/16 16:24 <JAMES SOW - Last Filed: 08/29/16 22:15> - Laboratory Result Diagrams: 08/29/16 16:24 08/29/16 16:24 <BRIA YEN - Last Filed: 08/30/16 12:21> - Re-evaluation Re-evalutation: 08/29/16 21:00 I personally performed the services described in the documentation, reviewed and edited the documentation which was dictated to my scribe in my presence, and it accurately records my words and actions. Patient presented to the emergency Department chief complaint of headache and weakness with a history of multiple sclerosis. The nurse taking care of her at the bedside came to me multiple times stating that she is in bed 7 with her mother who is admitted and refusing to come to be evaluated on several occasions I came to evaluate her she was in bed 7 and we asked her to come over so I couldn't assess her own room. Finally after over an hour she was cooperative to come to her room psych medical anthropology director. At the bedside she was altered. Sleepy and drowsy the nurses had witnessed her walking back and forth the bed 7 on her cell phone conversely normal walking without her cane with no distress at this point when I reassess her the nurses state that this is a complete and total change from her initial evaluation when she first came in. On my assessment she sleepy and drowsy had a bout of 15 or 20 minute conversation with her that she did not recall. At this point her 13-year-old son had come into the emergency department as his grandmother's being admitted in bed 7. He was very distressed and very concerned about his mother stating that when she takes her nighttime medication she falls hits herself off the wall and does things during the night that she doesn't remember. Patient is unable to tell me about any of these things and then denies this. The child isn't a great deal of distress worried about his mother. She tells me that she sees neurologist for multiple sclerosis. I do not on assessment and evaluation think that this is an exacerbation of multiple sclerosis. She her pupils were pinpoint and sluggish to react. The nurse witnessed her taking a Fioricet about to take it and came into the room and asked her not to take it and blot me back into the room at which point I talked with the patient about not taking any medications in an apartment especially were concerned about her mental status. Patient became very upset at this point and was not making any clear sense was acting irate and irrational. At this point security was involved and we asked that the 13- year-old go over with the grandmother at which point the grandmother called an uncle to take the child home or he would be safe. Explained to the patient that organic keep her for observation as we don't find anything to alter her mental status. She is acting like she has acute psychosis at this point. She also has in her system marijuana and barbiturates. Patient reassessed and explained situation on multiple occasions does not recall me coming in and talking with her. Patient very rational at this point unable to make her own decisions for her safety precautions I don't find anything to alter her mental status and concern about her psychological status and one-handed placed on IVC where she can be further assessed and evaluated. Patient is requesting to take additional Fioricet and Ambien both of which can alter her mental status is never brought up as a concern by her son at which point I don't want to do that she asked if we give her her losartan which I'm more than comfortable doing. At this point she is placed safety precautions. She is not happy with me at this point cussing at me wanting to go home I explained to her that for her safety we needed to keep her and assess her do a reassessment to make sure that she is safe from a mental health standpoint. I spoke with the patient's mother who is admitted in bed 7 she understands our concern at this point and made arrangements for the son to go home to safe environment and continues to agree to be admitted for chest pain evaluation 08/29/16 21:05 Patient with slight urinary tract infection which I'm treating with Macrobid but do not feel is causing on altered mental status. 08/29/16 21:10 08/29/16 21:13 08/29/16 22:11 patient requesting Fioricet from the nurse for headache reassessed her Tylenol. (TAYLER PEREZ) - Vital Signs Vital signs: Temp Pulse Resp BP Pulse Ox 98.0 F 87 16 134/91 H 99 08/30/16 08:34 08/30/16 08:32 08/30/16 08:32 08/30/16 08:32 08/30/16 08:32 - Laboratory Laboratory results interpreted by me: 08/29/16 08/29/16 08/29/16 16:24 16:24 16:24 WBC 10.9 H Hgb 11.8 L Hct 34.9 L RDW 14.1 H BUN 24 H Glucose 118 H Urine Blood SMALL H Ur Leukocyte Esterase MODERATE H Discharge <TAYLER PEREZ - Last Filed: 08/29/16 22:11> <JAMES SOW - Last Filed: 08/29/16 22:15> <BRIA YEN - Last Filed: 08/30/16 12:21> - Discharge Clinical Impression: acute psychosis, history of multiple sclerosis Altered mental status Qualifiers: Altered mental status type: unspecified Qualified Code(s): R41.82 - Altered mental status, unspecified Condition: Stable Disposition: HOME, SELF-CARE Additional Instructions: Altered Mental Status An altered mental status is a change in the normal functioning of the brain. This alteration of function can range from minor decreased brain function with some forgetfulness and confusion to complete loss of consciousness and coma. There are many possible causes of an altered mental status and include brain injuries such as trauma or strokes, problems with oxygen supply to the brain, fever and infections of the brain and/or elsewhere in the body, metabolic abnormalities such as low or high blood sugar, overdoses or excessive medication ingestion, and mental and psychiatric illnesses. Sometimes the altered mental status resolves and a definite cause is not determined. If a cause for your altered mental status was found, it has likely been corrected. Your evaluation has not shown any condition that requires that you be admitted to the hospital. It is believed that you are safe to leave and return to your home. If you have a return of your symptoms, you should return for re-evaluation. Overdose You have taken more medication than you should have. After your evaluation and care, it is felt that your overdose is not likely to be harmful or of any significant consequences to you and you are being discharged. In the future, you should be careful not to take more medications than what is prescribed for you. Although your overdose does not seem to be of any danger to you at this time, if you develop any unusual or unexpected symptoms after your discharge, you should return to the Emergency Department immediately for re-evaluation. FOLLOW-UP CARE: If you have been referred to a physician for follow-up care, call the physician s office for an appointment as you were instructed or within the next two days. If you experience worsening or a significant change in your symptoms, notify the physician immediately or return to the Emergency Department at any time for re-evaluation. We recommend that you follow-up at [facility]. Referrals: [facility] [Provider Group] - Follow up as needed Scribe Documentation - Scribe Written by Scribe:: James Sow 08/29/16 21:25 acting as scribe for :: Jack <JAMES SOW - Last Filed: 08/29/16 22:15>
[2016-08-29] MEDS ORDERED: NITROFURANTOIN MONOHYD/M-CRYST 100 MG CAPSULE PO ONE (20:59)
[2016-08-29] MEDS ORDERED: LOSARTAN POTASSIUM 25 MG TABLET PO ONE (21:10)
--- NOTE | 2016-08-29 22:08 | EKG REPORT ---
SEVERITY:- BORDERLINE ECG - SINUS TACHYCARDIA BORDERLINE T ABNORMALITIES, INFERIOR LEADS : Confirmed by: Marina Del Valle MD 29-Aug-2016 22:06:58
[2016-08-29] MEDS ORDERED: ACETAMINOPHEN 325 MG TABLET PO ONE (22:12)
--- NOTE | 2016-08-30 11:22 | ER Document Report ---
Doctor's Note Notes: 08/30/16 11:21 Rounds: Chart reviewed and patient interviewed. Patient is up and walking about the emergency department and interacting well with staff and other patients. Seems to be feeling much better and says that she feels fine. Wants to be discharged home. Patient says that she thinks that her behavior when she was admitted was due to her taking two Zanaflex for her MS muscle spasms. Lab studies were positive for which her rates and marijuana but otherwise negative. Patient appears medically stable for transfer or discharge. Melodie Pena M.D.
--- NOTE | 2016-08-30 11:59 | PSYCHOLOGICAL NOTE ---
Psych Note - Psych Note Psych Note: Patient presented to [facility] ED with history of MS, migraines, reports intermittent symptoms for a week which got more constant this afternoon; Headache, blurry vision, weakness, trouble walking. Patient states that she took 2 pills of her pain medication and then was told by her mother that her chest hurt and was requesting to be brought to [facility]. She continued to disclose that she checked in herself because she felt off and does not know what happened but all of a sudden they were taking her clothes and earrings. She continued to states that she use to go to [facility] before she lost her insurance [employer] but her primary doctor has been prescribing her medications for mental health; Buspar and Abilify to take as needed. Patient states that she is embarrassed about what happened. She disclosed that she suffers from some depression and anxiety since being diagnosis with MS. Patient is alert and orientated to person, place, time and circumstance. Mood is euthymic with congruent affect. patient denies suicidal and homicidal ideation. Patient denies auditory and visual hallucination; no delusions or behaviours indicating responding to internal stimuli are noted. Thought process is linear, organized, and logical. Conversational speech is within normal rate, tone, and prosody. Eye contact was well maintained. Attention and concentration are good. Insight, judgment and impulse control are good. 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 Patient is denying suicidal and homicidal ideation and is not in a current psychosis. Patient is not demonstrating behaviour indicating internal stimuli. Patient does not meet IVC criteria per [place] GS 122C. Patient receives her mental health medication from primary care provider. Dr. Leal was consulted on the care and management of this patient. Attending physician is in agreement with recommendations and dispositions.
[2016-08-30 12:52] VITALS: BP 150/89
== END 2016-08-30 12:55 | disposition home or self-care (01) ==
LOC: ER 14:11
DX: F23 Brief psychotic disorder (principal); R41.82 Altered mental status, unspecified; F06.31 Mood disorder due to known physiological condition with depressive features; F41.9 Anxiety disorder, unspecified; R51 Headache; G35 Multiple sclerosis; I10 Essential (primary) hypertension; E03.9 Hypothyroidism, unspecified; Z86.73 Personal history of transient ischemic attack (TIA), and cerebral infarction without residual deficits; Z91.040 Latex allergy status; Z90.49 Acquired absence of other specified parts of digestive tract; Z98.51 Tubal ligation status
CPT/HCPCS: 93005; 99285; 96374; 36415; 87040; 85025; 80053; 81001; 84484; 80307; 70450; 93010; J3490; J2310

== ENCOUNTER 2016-11-08 18:18 | Emergency (ER) | payer MEDICAID, OTHER ==
[2016-11-08] MEDS ORDERED: LIDOCAINE 5% (700 MG) TRANSDERMAL ADH..PATCH TP ONE (20:15)
[2016-11-08] MEDS ORDERED: DIAZEPAM 5 MG TABLET PO ONE (20:15)
--- NOTE | 2016-11-08 20:16 | ER Document Report ---
ED General - General Chief Complaint: Back Pain Stated Complaint: SIDE AND BACK PAIN Time Seen by Provider: 11/08/16 19:28 Notes: Patient is a 51-year-old female past medical history of multiple sclerosis who presents with 3-4 hours of bilateral diffuse thoracic and lumbar region back pain. Does describe it as a constant, spasming, severe pain. Nothing improves or worsens the pain. States she has a history of similar episodes in the past but typically responds to muscle relaxans but that this episode has not. Describes it as a "MS hug". Denies any bowel or bladder incontinence, urinary retention, weakness, numbness, or difficulty with ambulation. No known injury. She was referred to the emergency department by her primary doctor. TRAVEL OUTSIDE OF THE [place] IN LAST 30 DAYS: No - Related Data Allergies/Adverse Reactions: cefazolin sodium [From Ancef] Allergy (Intermediate, Verified 11/08/16 19:07) Nausea latex [Latex] Allergy (Verified 11/08/16 19:07) rash NSAIDS (Non-Steroidal Anti-Inflamma Allergy (Verified 11/08/16 19:07) Past Medical History - General Information source: Patient - Social History Smoking Status: Current Every Day Smoker Frequency of alcohol use: Social Drug Abuse: Marijuana Lives with: Family Family History: Reviewed & Not Pertinent, CAD, CVA, Hyperlipidemia, Hypertension Patient has suicidal ideation: No Patient has homicidal ideation: No - Past Medical History Cardiac Medical History: Reports: Hx Hypertension Denies: Hx Coronary Artery Disease, Hx Heart Attack Pulmonary Medical History: Denies: Hx Asthma, Hx Bronchitis, Hx COPD, Hx Pneumonia Neurological Medical History: Reports: Hx Cerebrovascular Accident - july 2015 , Hx Migraine. Denies: Hx Seizures Endocrine Medical History: Reports: Hx Hypothyroidism Renal/ Medical History: Denies: Hx Peritoneal Dialysis GI Medical History: Reports: Hx Irritable Bowel. Denies: Hx Crohn's Disease, Hx Gastroesophageal Reflux Disease, Hx Hiatal Hernia, Hx Liver Failure, Hx Ulcer Musculoskeltal Medical History: Reports Hx Arthritis, Denies Hx Fibromyalgia, Reports Hx Multiple Sclerosis, Denies Hx Muscular Dystrophy, Reports Hx Muscle Spasm, Reports Hx Musculoskeletal Deformity, Reports Hx Musculoskeletal Trauma Psychiatric Medical History: Reports: Hx Anxiety Denies: Hx Bipolar Disorder, Hx Dementia, Hx Depression, Hx Post Traumatic Stress Disorder, Hx Schizophrenia Traumatic Medical History: Reports: Hx Fractures Infectious Medical History: Reports: Hx C-Diff. Denies: Hx HIV Past Surgical History: Reports: Hx Appendectomy, Hx Breast Surgery - reduction, Hx Section - x 2, Hx Cholecystectomy, Hx Gynecologic Surgery - D & C, Hx Orthopedic Surgery - right ankle, lumbar spine, Hx Thyroid Surgery - parathyroid and part of thyroid, Hx Tubal Ligation. Denies: Hx Bowel Surgery, Hx Colostomy, Hx Coronary Artery Bypass Graft, Hx Gastric Bypass Surgery, Hx Herniorrhaphy, Hx Hysterectomy, Hx Mastectomy, Hx Pacemaker, Hx Tonsillectomy - Immunizations Immunizations up to date: Yes Hx Diphtheria, Pertussis, Tetanus Vaccination: Yes Review of Systems - Review of Systems Notes: Constitutional: Negative for fever. HENT: Negative for sore throat. Eyes: Negative for visual changes. Cardiovascular: Negative for chest pain. Respiratory: Negative for shortness of breath. Gastrointestinal: Negative for abdominal pain, vomiting or diarrhea. Genitourinary: Negative for dysuria. Musculoskeletal: Positive for back pain. Skin: Negative for rash. Neurological: Negative for headaches, weakness or numbness. 10 point ROS negative except as marked above and in HPI. Physical Exam - Vital signs Vitals: Resp 18 // 19:00 Interpretation: Normal Notes: PHYSICAL EXAMINATION: GENERAL: Well-appearing, well-nourished and in no acute distress. HEAD: Atraumatic, normocephalic. EYES: Pupils equal round and reactive to light, extraocular movements intact, sclera anicteric, conjunctiva are normal. ENT: nares patent, oropharynx clear without exudates. Moist mucous membranes. NECK: Normal range of motion, supple without lymphadenopathy LUNGS: Breath sounds clear to auscultation bilaterally and equal. No wheezes rales or rhonchi. HEART: Regular rate and rhythm without murmurs ABDOMEN: Soft, nontender, normoactive bowel sounds. No guarding, no rebound. No masses appreciated. EXTREMITIES: Normal range of motion, no pitting or edema. No cyanosis. Back: Mid no midline spinal tenderness, step-offs or deformities. NEUROLOGICAL: 5 out of 5 strength both distally and proximally bilateral lower extremities. 2+ patellar reflexes bilaterally. No clonus. Sensation grossly intact in the bilateral lower extremities. Patient is able to ambulate without difficulty. PSYCH: Normal mood, normal affect. SKIN: Warm, Dry, normal turgor, no rashes or lesions noted. Course - Re-evaluation Re-evalutation: 11/08/16 20:15 Presentation of a well appearing patient complaining of acute back pain. No rapid progression of symptoms, systemic symptoms including fevers, chills, weight loss, history of recent bacterial infection, bilateral symptoms, numbness , weakness, difficulty walking, urinary retention or bowel incontinence, personal history of cancer, immunosuppression, diabetes, known AAA, or history of IV drug use. Exam is without point tenderness over vertebral bodies, pulsatile abdominal mass, and patient has symmetric and intact lower extremity strength, sensation, and reflexes without clonus. 2+ symmetric medial malleolar and dorsalis pedis pulses Based on history and physical, I have a very low suspicion of a concerning etiology of pain including epidural compression syndrome, spinal infection, transverse myelitis, malignancy, abdominal aortic aneurysm, renal colic, acute lower extremity claudication, neurogenic claudication, ankylosing spondylitis, or other intra-abdominal process. Due to absence of concerning risk factors in history and physical as well as absence of rapidly progressive, severe, or bilateral symptoms, will defer imaging at this point. Plan to manage conservatively with outpatient analgesia, analgesia, and physical therapy. - Acetaminophen 650 q 4 - Continue normal daily activities as tolerated by pain - Provide with standard musculoskeletal back pain exercise instructions - Instruct to follow up with primary care provider if symptoms not improving - Provide careful return precautions and concerning symptoms to watch for. - Vital Signs Vital signs: Temp Pulse Resp BP Pulse Ox 97.8 F 86 18 122/85 98 11/08/16 20:40 11/08/16 20:40 11/08/16 20:40 11/08/16 20:40 11/08/16 20:40 Discharge - Discharge Clinical Impression: Upper back pain Condition: Good Disposition: HOME, SELF-CARE Additional Instructions: You have been seen in the Emergency Department (ED) today for back pain. Please follow up with your doctor as soon as possible regarding today's ED visit and your back pain. Return to the ED for worsening back pain, fever, weakness or numbness of either leg, or if you develop either (1) an inability to urinate or have bowel movements, or (2) loss of your ability to control your bathroom functions (if you start having "accidents"), or if you develop other new symptoms that concern you.concern you.
[2016-11-08 20:42] VITALS: BP 122/85
== END 2016-11-08 20:40 | disposition home or self-care (01) ==
LOC: ER 18:18
DX: G35 Multiple sclerosis (principal); M54.6 Pain in thoracic spine; M54.5 Low back pain; F17.200 Nicotine dependence, unspecified, uncomplicated; I10 Essential (primary) hypertension; Z91.040 Latex allergy status; Z88.8 Allergy status to other drugs, medicaments and biological substances; Z88.1 Allergy status to other antibiotic agents; Z86.73 Personal history of transient ischemic attack (TIA), and cerebral infarction without residual deficits
CPT/HCPCS: 99283; J3490 ×2

== ENCOUNTER 2016-12-10 14:45 | Emergency (ER) | payer MEDICAID ==
[2016-12-10] MEDS ORDERED: ONDANSETRON 4 MG TAB.RAPDIS PO ONE (16:08)
--- NOTE | 2016-12-10 16:08 | ER Document Report ---
ED Medical Screen (RME) - General Chief Complaint: Nausea Stated Complaint: NAUSEA,ABDOMINAL PAIN Time Seen by Provider: 12/10/16 16:03 Information source: Patient Notes: Patient is a 51 year old female with a history of MS who presents to the ED with complaints of nausea, headache and weakness to her right leg. Patient states she has had similar symptoms in the past when she was having an MS flare up. Patient denies a fever. TRAVEL OUTSIDE OF THE [place] IN LAST 30 DAYS: No - HPI Patient complains to provider of: MS flare up Associated Symptoms: Other - see above. denies: Fever - Related Data Allergies/Adverse Reactions: cefazolin sodium [From Ancef] Allergy (Intermediate, Verified 12/10/16 14:59) Nausea latex [Latex] Allergy (Verified 12/10/16 14:59) rash NSAIDS (Non-Steroidal Anti-Inflamma Allergy (Verified 12/10/16 14:59) Past Medical History - General Information source: Patient - Social History Chew tobacco use (# tins/day): No Frequency of alcohol use: Social Drug Abuse: None, Marijuana - Past Medical History Cardiac Medical History: Reports: Hx Hypertension Denies: Hx Coronary Artery Disease, Hx Heart Attack Pulmonary Medical History: Denies: Hx Asthma, Hx Bronchitis, Hx COPD, Hx Pneumonia Neurological Medical History: Reports: Hx Cerebrovascular Accident - july 2015 , Hx Migraine, Other - MS. Denies: Hx Seizures Endocrine Medical History: Reports: Hx Hypothyroidism Renal/ Medical History: Denies: Hx Peritoneal Dialysis GI Medical History: Reports: Hx Irritable Bowel. Denies: Hx Crohn's Disease, Hx Gastroesophageal Reflux Disease, Hx Hiatal Hernia, Hx Liver Failure, Hx Ulcer Musculoskeltal Medical History: Reports Hx Arthritis, Denies Hx Fibromyalgia, Reports Hx Multiple Sclerosis, Denies Hx Muscular Dystrophy, Reports Hx Muscle Spasm, Reports Hx Musculoskeletal Deformity, Reports Hx Musculoskeletal Trauma Psychiatric Medical History: Reports: Hx Anxiety Denies: Hx Bipolar Disorder, Hx Dementia, Hx Depression, Hx Post Traumatic Stress Disorder, Hx Schizophrenia Traumatic Medical History: Reports: Hx Fractures Infectious Medical History: Reports: Hx C-Diff. Denies: Hx HIV Past Surgical History: Reports: Hx Appendectomy, Hx Breast Surgery - reduction, Hx Section - x 2, Hx Cholecystectomy, Hx Gynecologic Surgery - D & C, Hx Orthopedic Surgery - right ankle, lumbar spine, Hx Thyroid Surgery - parathyroid and part of thyroid, Hx Tubal Ligation. Denies: Hx Bowel Surgery, Hx Colostomy, Hx Coronary Artery Bypass Graft, Hx Gastric Bypass Surgery, Hx Herniorrhaphy, Hx Hysterectomy, Hx Mastectomy, Hx Pacemaker, Hx Tonsillectomy - Immunizations Immunizations up to date: Yes Hx Diphtheria, Pertussis, Tetanus Vaccination: Yes Review of Systems - Review of Systems Constitutional: See HPI, Weakness - to right leg. denies: Fever EENT: No symptoms reported Cardiovascular: No symptoms reported Respiratory: No symptoms reported Gastrointestinal: See HPI, Nausea Genitourinary: No symptoms reported Female Genitourinary: No symptoms reported Musculoskeletal: No symptoms reported Skin: No symptoms reported Hematologic/Lymphatic: No symptoms reported Neurological/Psychological: See HPI, Weakness - right leg, Headaches Physical Exam - Vital signs Vitals: Temp Pulse Resp BP Pulse Ox 98.1 F 87 20 116/76 100 12/10/16 14:59 12/10/16 14:59 12/10/16 14:59 12/10/16 14:59 12/10/16 14:59 - General In distress: None - Abdominal Inspection: Normal, Other - soft Tenderness: Nontender - Neurological Motor strength normal: No: RLE - moderate weakness to RLE Course - Vital Signs Vital signs: Temp Pulse Resp BP Pulse Ox 98.1 F 87 20 116/76 100 12/10/16 14:59 12/10/16 14:59 12/10/16 14:59 12/10/16 14:59 12/10/16 14:59 Scribe Documentation - Scribe Written by Scribe:: jamal Garcia, 12/10/2016, 1611 acting as scribe for :: Andry
[2016-12-10 16:25] LABS: ABSOLUTE BASOPHILS # (AUTO) 0.1 10^3/uL (0.0-0.2); ABSOLUTE EOSINOPHILS # (AUTO) 0.4 10^3/uL (0.0-0.6); ABSOLUTE LYMPHOCYTES (AUTO) 5.5 10^3/uL (0.5-4.7); ABSOLUTE MONOCYTES (AUTO) 1.1 10^3/uL (0.1-1.4); ABSOLUTE NEUT (AUTO) 8.1 10^3/uL (1.7-8.2); BASOPHILS % (AUTO) 0.6 % (0-2); EOSINOPHILS % (AUTO) 2.4 % (0-6); HEMATOCRIT 35.7 % (36.0-47.0); HEMOGLOBIN 11.6 g/dL (12.0-15.5); HGB HCT DIFFERENCE -0.9; LYMPHOCYTES % (AUTO) 36.2 % (13-45); MEAN CORPUSCULAR HEMOGLOBIN 27.6 pg (27.0-33.4); MEAN CORPUSCULAR HGB CONC 32.6 g/dL (32.0-36.0); MEAN CORPUSCULAR VOLUME 85 fl (80-97); MONOCYTES % (AUTO) 7.4 % (3-13); RED BLOOD COUNT 4.21 10^6/uL (3.72-5.28); RED CELL DISTRIBUTION WIDTH 14.4 % (11.5-14.0); SEGMENTED NEUTROPHILS % (AUTO) 53.4 % (42-78); WHITE BLOOD COUNT 15.2 10^3/uL (4.0-10.5)
[2016-12-10 16:45] LABS: ALANINE AMINOTRANSFERASE 26 U/L (9-52); ALBUMIN 4.3 g/dL (3.5-5.0); ALKALINE PHOSPHATASE 109 U/L (38-126); ANION GAP 9 (5-19); ASPARTATE AMINO TRANSFERASE 17 U/L (14-36); BILIRUBIN,DIRECT 0.3 mg/dL (0.0-0.4); BILIRUBIN,TOTAL 0.4 mg/dL (0.2-1.3); BLOOD UREA NITROGEN 20 mg/dL (7-20); CALCIUM 9.4 mg/dL (8.4-10.2); CARBON DIOXIDE 33 mmol/L (22-30); CHLORIDE 98 mmol/L (98-107); CREATININE RESULT 0.92 mg/dL (0.52-1.25); GLUCOSE 97 mg/dL (75-110); POTASSIUM 3.7 mmol/L (3.6-5.0); SODIUM 139.6 mmol/L (137-145); TOTAL PROTEIN 7.4 g/dL (6.3-8.2)
[2016-12-10 17:04] LABS: ERYTHROCYTE SEDIMENTATION RATE 38 mm/hr (0-20)
--- NOTE | 2016-12-10 17:44 | ER Document Report ---
ED GI/ - General Chief Complaint: Nausea Stated Complaint: NAUSEA,ABDOMINAL PAIN Time Seen by Provider: 12/10/16 16:03 Mode of Arrival: Ambulatory Information source: Patient Notes: Patient is a 51-year-old female who presents to the ER today for weakness to the right leg starting yesterday with headache and lightheadedness, nausea. Patient has multiple sclerosis and states that this is usually how her flareups began. She did finish a steroid injection medication that she called Actra 5 days ago. She denies any numbness or tingling anywhere, back pain, loss of bladder or bowel function. She denies any injury to the head. She does have some blurred vision to the right eye. She states this is also normal with her MS. TRAVEL OUTSIDE OF THE [place] IN LAST 30 DAYS: No - Related Data Allergies/Adverse Reactions: cefazolin sodium [From Ancef] Allergy (Intermediate, Verified 12/10/16 14:59) Nausea latex [Latex] Allergy (Verified 12/10/16 14:59) rash NSAIDS (Non-Steroidal Anti-Inflamma Allergy (Verified 12/10/16 14:59) Past Medical History - General Information source: Patient - Social History Smoking Status: Current Every Day Smoker Chew tobacco use (# tins/day): No Frequency of alcohol use: Social Drug Abuse: None, Marijuana Family History: Reviewed & Not Pertinent, CAD, CVA, Hyperlipidemia, Hypertension Patient has suicidal ideation: No Patient has homicidal ideation: No - Past Medical History Cardiac Medical History: Reports: Hx Hypertension Denies: Hx Coronary Artery Disease, Hx Heart Attack Pulmonary Medical History: Denies: Hx Asthma, Hx Bronchitis, Hx COPD, Hx Pneumonia Neurological Medical History: Reports: Hx Cerebrovascular Accident - july 2015 , Hx Migraine, Other - MS. Denies: Hx Seizures Endocrine Medical History: Reports: Hx Hypothyroidism Renal/ Medical History: Denies: Hx Peritoneal Dialysis GI Medical History: Reports: Hx Irritable Bowel. Denies: Hx Crohn's Disease, Hx Gastroesophageal Reflux Disease, Hx Hiatal Hernia, Hx Liver Failure, Hx Ulcer Musculoskeltal Medical History: Reports Hx Arthritis, Denies Hx Fibromyalgia, Reports Hx Multiple Sclerosis, Denies Hx Muscular Dystrophy, Reports Hx Muscle Spasm, Reports Hx Musculoskeletal Deformity, Reports Hx Musculoskeletal Trauma Psychiatric Medical History: Reports: Hx Anxiety Denies: Hx Bipolar Disorder, Hx Dementia, Hx Depression, Hx Post Traumatic Stress Disorder, Hx Schizophrenia Traumatic Medical History: Reports: Hx Fractures Infectious Medical History: Reports: Hx C-Diff. Denies: Hx HIV Past Surgical History: Reports: Hx Appendectomy, Hx Breast Surgery - reduction, Hx Section - x 2, Hx Cholecystectomy, Hx Gynecologic Surgery - D & C, Hx Orthopedic Surgery - right ankle, lumbar spine, Hx Thyroid Surgery - parathyroid and part of thyroid, Hx Tubal Ligation. Denies: Hx Bowel Surgery, Hx Colostomy, Hx Coronary Artery Bypass Graft, Hx Gastric Bypass Surgery, Hx Herniorrhaphy, Hx Hysterectomy, Hx Mastectomy, Hx Pacemaker, Hx Tonsillectomy - Immunizations Immunizations up to date: Yes Hx Diphtheria, Pertussis, Tetanus Vaccination: Yes Review of Systems - Review of Systems Constitutional: See HPI EENT: No symptoms reported Cardiovascular: No symptoms reported Respiratory: No symptoms reported Gastrointestinal: No symptoms reported Genitourinary: No symptoms reported Female Genitourinary: No symptoms reported Musculoskeletal: No symptoms reported Skin: No symptoms reported Hematologic/Lymphatic: No symptoms reported Neurological/Psychological: See HPI Physical Exam - Vital signs Vitals: Temp Pulse Resp BP Pulse Ox 98.1 F 87 20 116/76 100 12/10/16 14:59 12/10/16 14:59 12/10/16 14:59 12/10/16 14:59 12/10/16 14:59 - Notes Notes: PHYSICAL EXAMINATION: GENERAL: Well-appearing, eating fried foot, and in no acute distress. HEAD: Atraumatic, normocephalic. EYES: Pupils equal round and reactive to light, extraocular movements intact, sclera anicteric, conjunctiva are normal. ENT: ear canals without erythema or foreign body, TMs pearly odell with good bony landmarks, nares patent, oropharynx clear without exudates. Moist mucous membranes. NECK: Normal range of motion, supple without lymphadenopathy LUNGS: CTAB and equal. No wheezes rales or rhonchi. HEART: Regular rate and rhythm without murmurs ABDOMEN: Soft, no tenderness. No guarding, no rebound BACK: no vertebral tenderness, normal ROM GI/: no CVA tenderness EXTREMITIES: Normal range of motion, no pitting edema. No cyanosis. NEUROLOGICAL: motor weakness to right lower extremity, Cranial nerves grossly intact. Normal sensory/motor exams. PSYCH: Normal mood, normal affect. SKIN: Warm, Dry, normal turgor, no rashes or lesions noted Course - Re-evaluation Re-evalutation: 12/10/16 17:48 Pt has a WBC of 15.2, maybe due to steroid medication recently, I will place her back on steroids and send her home to follow up with her neurologist. Her vitals are all normal here today. - Vital Signs Vital signs: Temp Pulse Resp BP Pulse Ox 98.1 F 87 20 116/76 100 12/10/16 14:59 12/10/16 14:59 12/10/16 14:59 12/10/16 14:59 12/10/16 14:59 - Laboratory Result Diagrams: 12/10/16 16:15 12/10/16 16:15 Laboratory results interpreted by me: 12/10/16 12/10/16 16:15 16:15 WBC 15.2 H Hgb 11.6 L Hct 35.7 L RDW 14.4 H Absolute Lymphocytes 5.5 H ESR 38 H Carbon Dioxide 33 H Discharge - Discharge Clinical Impression: Multiple sclerosis, Right leg weakness Condition: Stable Disposition: HOME, SELF-CARE Additional Instructions: Return immediately for any new or worsening symptoms. Follow up with neurologist, call tomorrow to make followup appointment. Prescriptions: Prednisone [Deltasone 20 mg Tablet] 3 tab PO DAILY 10 Days Referrals: LIYAH CHUNG MD [Primary Care Provider] - Follow up as needed NATALIYA WATSON MD [ACTIVE STAFF] - Follow up as needed
[2016-12-10] MEDS ORDERED: PREDNISONE 20 MG TABLET PO ONE (17:52)
[2016-12-10 18:02] VITALS: BP 107/67
== END 2016-12-10 18:00 | disposition home or self-care (01) ==
LOC: ER 14:45
DX: G35 Multiple sclerosis (principal); R11.0 Nausea; R10.9 Unspecified abdominal pain; R53.1 Weakness; R51 Headache; R42 Dizziness and giddiness; F17.200 Nicotine dependence, unspecified, uncomplicated; I10 Essential (primary) hypertension; E03.9 Hypothyroidism, unspecified; Z91.040 Latex allergy status; Z90.49 Acquired absence of other specified parts of digestive tract
CPT/HCPCS: 99284; 36415; 85025; 85652; 80053; S0119; J7512

== ENCOUNTER → 2018-01-07 | Outpatient (CLI) | payer MEDICAID ==
[2018-01-07 17:57] LABS: ALANINE AMINOTRANSFERASE 16 U/L (9-52); ALBUMIN 4.5 g/dL (3.5-5.0); ALKALINE PHOSPHATASE 97 U/L (38-126); ANION GAP 16 (5-19); ASPARTATE AMINO TRANSFERASE 18 U/L (14-36); BILIRUBIN,DIRECT 0.3 mg/dL (0.0-0.4); BILIRUBIN,TOTAL 0.4 mg/dL (0.2-1.3); BLOOD UREA NITROGEN 17 mg/dL (7-20); CARBON DIOXIDE 28 mmol/L (22-30); CHLORIDE 102 mmol/L (98-107); GLUCOSE 148 mg/dL (75-110); POTASSIUM 4.6 mmol/L (3.6-5.0); SODIUM 145.5 mmol/L (137-145); TOTAL PROTEIN 7.8 g/dL (6.3-8.2)
== END ==
LOC: OD 16:58
PROVIDERS: ATTEND Internal Medicine Geriatric Medicine
DX: I10 Essential (primary) hypertension (principal)
CPT/HCPCS: 36415; 80053

== ENCOUNTER 2018-09-10 12:13 | Emergency (ER) | payer MEDICARE, MEDICAID ==
[2018-09-10] MEDS ORDERED: ACETAMINOPHEN 325 MG TABLET PO ONE (13:10)
--- NOTE | 2018-09-10 13:11 | ER Document Report ---
ED Medical Screen (RME) - General Chief Complaint: Flank Pain Stated Complaint: RIGHT SIDE PAIN Time Seen by Provider: 09/10/18 13:07 Primary Care Provider: LIYAH CHUNG MD [Primary Care Provider] - Follow up as needed TRAVEL OUTSIDE OF THE [place] IN LAST 30 DAYS: No - HPI Notes: 09/10/18 13:10 Patient is a 53-year-old female with a history of CVA, MS, cholecystectomy, appe ndectomy who presents to the emergency department complaining of right flank pain that began last evening. Patient states that the pain feels deep and is not relieved with muscle relaxers or a TENS unit. She is eating and drinking without difficulty. She is urinating normally and having normal bowel movements. Denies SCHMIDT, fever, neck pain, URI, CP, SOB, Abd pain, or rash. I have treated and performed a rapid initial assessment of this patient. A comprehensive ED assessment and evaluation of the patient, analysis of test results and completion of medical decision making process will be conducted by additional ED providers. PHYSICAL EXAMINATION: GENERAL: Well-appearing, well-nourished and in no acute distress. A&Ox4. Answers questions appropriately. LUNGS: Breath sounds clear to auscultation bilaterally and equal. No wheezes rales or rhonchi. HEART: Regular rate and rhythm without murmurs, rubs, gallops. ABDOMEN: Soft, nondistended abdomen. No guarding, no rebound. Normal bowel sounds present. + right CVA tenderness. No abd tenderness otherwise (cannot elicit thorough abd exam w/o table, however). - Related Data Allergies/Adverse Reactions: cefazolin sodium [From Ancef] Allergy (Intermediate, Verified 09/10/18 12:19) Nausea latex [Latex] Allergy (Verified 09/10/18 12:19) rash NSAIDS (Non-Steroidal Anti-Inflamma Allergy (Verified 09/10/18 12:19) Past Medical History - Social History Frequency of alcohol use: None Drug Abuse: None - Past Medical History Cardiac Medical History: Reports: Hx Hypertension Denies: Hx Coronary Artery Disease, Hx Heart Attack Pulmonary Medical History: Denies: Hx Asthma, Hx Bronchitis, Hx COPD, Hx Pneumonia Neurological Medical History: Reports: Hx Cerebrovascular Accident - july 2015, Hx Migraine. Denies: Hx Seizures Endocrine Medical History: Reports: Hx Hypothyroidism Renal/ Medical History: Denies: Hx Peritoneal Dialysis GI Medical History: Reports: Hx Irritable Bowel. Denies: Hx Crohn's Disease, Hx Gastroesophageal Reflux Disease, Hx Hiatal Hernia, Hx Liver Failure, Hx Pancreatitis, Hx Ulcer Musculoskeltal Medical History: Reports Hx Arthritis, Denies Hx Fibromyalgia, Reports Hx Multiple Sclerosis, Denies Hx Muscular Dystrophy, Reports Hx Muscle Spasm, Reports Hx Musculoskeletal Deformity, Reports Hx Musculoskeletal Trauma Psychiatric Medical History: Reports: Hx Anxiety Denies: Hx Bipolar Disorder, Hx Dementia, Hx Depression, Hx Post Traumatic St ress Disorder, Hx Schizophrenia Traumatic Medical History: Reports: Hx Fractures Infectious Medical History: Reports: Hx C-Diff. Denies: Hx HIV Past Surgical History: Reports: Hx Appendectomy, Hx Breast Surgery - reduction, Hx Section - x 2, Hx Cholecystectomy, Hx Gynecologic Surgery - D & C, Hx Orthopedic Surgery - right ankle, lumbar spine, Hx Thyroid Surgery - parathyroid and part of thyroid, Hx Tubal Ligation. Denies: Hx Bowel Surgery, Hx Colostomy, Hx Coronary Artery Bypass Graft, Hx Gastric Bypass Surgery, Hx Herniorrhaphy, Hx Hysterectomy, Hx Mastectomy, Hx Pacemaker, Hx Tonsillectomy - Immunizations Immunizations up to date: Yes Hx Diphtheria, Pertussis, Tetanus Vaccination: Yes Physical Exam - Vital signs Vitals: Temp Pulse Resp BP Pulse Ox 98.3 F 89 20 120/71 98 09/10/18 12:50 09/10/18 12:50 09/10/18 12:50 09/10/18 12:50 09/10/18 12:50 Course - Vital Signs Vital signs: Temp Pulse Resp BP Pulse Ox 98.3 F 89 20 120/71 98 09/10/18 12:50 09/10/18 12:50 09/10/18 12:50 09/10/18 12:50 09/10/18 12:50 Doctor's Discharge - Discharge Referrals: LIYAH CHUNG MD [Primary Care Provider] - Follow up as needed
[2018-09-10 13:53] LABS: ABSOLUTE BASOPHILS # (AUTO) 0.1 10^3/uL (0.0-0.2); ABSOLUTE EOSINOPHILS # (AUTO) 0.4 10^3/uL (0.0-0.6); ABSOLUTE LYMPHOCYTES (AUTO) 2.2 10^3/uL (0.5-4.7); ABSOLUTE MONOCYTES (AUTO) 0.6 10^3/uL (0.1-1.4); BASOPHILS % (AUTO) 0.6 % (0-2); EOSINOPHILS % (AUTO) 4.5 % (0-6); HEMATOCRIT 40.5 % (36.0-47.0); HEMOGLOBIN 13.6 g/dL (12.0-15.5); LYMPHOCYTES % (AUTO) 23.7 % (13-45); MEAN CORPUSCULAR HEMOGLOBIN 28.6 pg (27.0-33.4); MEAN CORPUSCULAR HGB CONC 33.5 g/dL (32.0-36.0); MEAN CORPUSCULAR VOLUME 86 fl (80-97); MONOCYTES % (AUTO) 6.9 % (3-13); PLATELET COUNT 327 10^3/uL (150-450); RED BLOOD COUNT 4.74 10^6/uL (3.72-5.28); RED CELL DISTRIBUTION WIDTH 13.6 % (11.5-14.0); SEGMENTED NEUTROPHILS % (AUTO) 64.3 % (42-78); TOTAL CELLS COUNTED % (AUTO) 100 %; WHITE BLOOD COUNT 9.3 10^3/uL (4.0-10.5)
[2018-09-10 14:14] LABS: ALANINE AMINOTRANSFERASE 22 U/L (9-52); ALBUMIN 4.7 g/dL (3.5-5.0); ALKALINE PHOSPHATASE 105 U/L (38-126); ANION GAP 12 (5-19); ASPARTATE AMINO TRANSFERASE 17 U/L (14-36); BILIRUBIN,DIRECT 0.2 mg/dL (0.0-0.4); BILIRUBIN,TOTAL 0.3 mg/dL (0.2-1.3); BLOOD UREA NITROGEN 20 mg/dL (7-20); CALCIUM 10.1 mg/dL (8.4-10.2); CARBON DIOXIDE 32 mmol/L (22-30); CHLORIDE 97 mmol/L (98-107); GLUCOSE 112 mg/dL (75-110); LIPASE 85.1 U/L (23-300); POTASSIUM 3.6 mmol/L (3.6-5.0); SODIUM 140.9 mmol/L (137-145); TOTAL PROTEIN 8.2 g/dL (6.3-8.2)
--- NOTE | 2018-09-10 16:49 | ER Document Report ---
ED General - General Chief Complaint: Flank Pain Stated Complaint: RIGHT SIDE PAIN Time Seen by Provider: 09/10/18 13:07 Primary Care Provider: LIYAH CHUNG MD [Primary Care Provider] - Follow up in 3-5 days Notes: Patient is a 53-year-old female that presents to the emergency department for chief complaint of right-sided abdominal pain.. Patient states she started having pain in her right flank, this past Saturday and it is not getting much better, she describes as a constant dull ache, and the CVA area on the right. She denies having any dysuria, hematuria, urinary frequency or urgency. Denies prior history of kidney stones. She states she has had issues with MS where she gets pain in her flanks, but this is different than prior. She denies noting any fevers, chills, night sweats, nausea, vomiting or diarrhea. She also denies having any chest pain or shortness of breath. Past Medical History: MS, CVA Past Surgical History: Cholecystectomy, appendectomy Social History: Admits to smoking cigarettes, denies alcohol or illicit drug use. Family History: Reviewed and noncontributory for presenting illness Allergies: Reviewed, see documented allergy list. REVIEW OF SYSTEMS: Other than noted above, the 12 point review of systems was reviewed with the patient and were negative, all pertinent findings are included in the HPI. PHYSICAL EXAMINATION: Vital signs reviewed, nursing noted reviewed. GENERAL: Well-appearing, well-nourished and in no acute distress. HEAD: Atraumatic, normocephalic. EYES: Eyes appear normal, extraocular movements intact, sclera anicteric, conjunctiva are normal. ENT: nares patent, oropharynx clear without exudates. Moist mucous membranes. NECK: Normal range of motion, supple without lymphadenopathy LUNGS: Breath sounds clear to auscultation bilaterally and equal. No wheezes rales or rhonchi. HEART: Regular rate and rhythm without murmurs ABDOMEN: Soft, mild right CVA tenderness, normoactive bowel sounds. No rebound, guarding, or rigidity. No masses appreciated. EXTREMITIES: Nontender, good range of motion, no pitting or edema. NEUROLOGICAL: No focal neurological deficits. Moves all extremities spontaneously Motor and sensory grossly intact on exam. PSYCH: Normal mood, normal affect. SKIN: Warm, Dry, normal turgor, no rashes or lesions noted on exposed skin TRAVEL OUTSIDE OF THE [place] IN LAST 30 DAYS: No - Related Data Allergies/Adverse Reactions: cefazolin sodium [From Ancef] Allergy (Intermediate, Verified 09/10/18 12:19) Nausea latex [Latex] Allergy (Verified 09/10/18 12:19) rash NSAIDS (Non-Steroidal Anti-Inflamma Allergy (Verified 09/10/18 12:19) Past Medical History - Social History Smoking Status: Never Smoker Frequency of alcohol use: None Drug Abuse: None Family History: Reviewed & Not Pertinent, CAD, CVA, Hyperlipidemia, Hypertension Patient has suicidal ideation: No Patient has homicidal ideation: No - Past Medical History Cardiac Medical History: Reports: Hx Hypertension Denies: Hx Coronary Artery Disease, Hx Heart Attack Pulmonary Medical History: Denies: Hx Asthma, Hx Bronchitis, Hx COPD, Hx Pneumonia Neurological Medical History: Reports: Hx Cerebrovascular Accident - july 2015, Hx Migraine. Denies: Hx Seizures Endocrine Medical History: Reports: Hx Hypothyroidism Renal/ Medical History: Denies: Hx Peritoneal Dialysis GI Medical History: Reports: Hx Irritable Bowel. Denies: Hx Crohn's Disease, Hx Gastroesophageal Reflux Disease, Hx Hiatal Hernia, Hx Liver Failure, Hx Pancreatitis, Hx Ulcer Musculoskeletal Medical History: Reports Hx Arthritis, Denies Hx Fibromyalgia, Reports Hx Multiple Sclerosis, Denies Hx Muscular Dystrophy, Reports Hx Muscle Spasm, Reports Hx Musculoskeletal Deformity, Reports Hx Musculoskeletal Trauma Psychiatric Medical History: Reports: Hx Anxiety Denies: Hx Bipolar Disorder, Hx Dementia, Hx Depression, Hx Post Traumatic Stress Disorder, Hx Schizophrenia Traumatic Medical History: Reports: Hx Fractures Infectious Medical History: Reports: Hx C-Diff. Denies: Hx HIV Past Surgical History: Reports: Hx Appendectomy, Hx Breast Surgery - reduction, Hx Section - x 2, Hx Cholecystectomy, Hx Gynecologic Surgery - D & C, Hx Orthopedic Surgery - right ankle, lumbar spine, Hx Thyroid Surgery - parathyroid and part of thyroid, Hx Tubal Ligation. Denies: Hx Bowel Surgery, Hx Colostomy, Hx Coronary Artery Bypass Graft, Hx Gastric Bypass Surgery, Hx Herniorrhaphy, Hx Hysterectomy, Hx Mastectomy, Hx Pacemaker, Hx Tonsillectomy - Immunizations Immunizations up to date: Yes Hx Diphtheria, Pertussis, Tetanus Vaccination: Yes Physical Exam - Vital signs Vitals: Temp Pulse Resp BP Pulse Ox 98.3 F 89 20 120/71 98 09/10/18 12:50 09/10/18 12:50 09/10/18 12:50 09/10/18 12:50 09/10/18 12:50 Course - Re-evaluation Re-evalutation: Patient seen and examined vital signs reviewed. Laboratory data and/or imaging were ordered as appropriate for the patient's presenting symptoms and complaint, with consideration of any critical or life threatening conditions that may be associated with their obtained history and exam as noted above. Patient was treated with IV fluid, IV fentanyl and Zofran Results were reviewed when available and demonstrated unremarkable workup with the exception of a possible urinary tract infection, will be sent for culture, CT imaging was negative for evidence of renal stone. Blood work was otherwise unremarkable and unchanged from prior The patient was re-evaluated and was improved, but still having some aching. She was offered a muscle x-rays is possible this could be MS related and muscle tension. Patient declined at this time. Evaluation was most consistent with right flank pain, etiology unclear, possible renal colic, will prescribe the patient Bactrim for possible urinary tract infection, culture sent, and given a prescription for muscle relaxer. Results were discussed with the patient at this point, after careful consi deration I feel that that patient can be discharged from the emergency department, the patient was educated treatments and reasons to return to the emergency department based on their presumed diagnosis as noted above, they were advised to followup with a primary care physician in 2-3 days. Patient was agreeable to plan of care. *Note is created using voice recognition software and may contain spelling, syntax or grammatical errors. Laboratory 09/10/18 09/10/18 09/10/18 13:20 13:20 13:20 WBC 9.3 RBC 4.74 Hgb 13.6 Hct 40.5 MCV 86 MCH 28.6 MCHC 33.5 RDW 13.6 Plt Count 327 Seg Neutrophils % 64.3 Lymphocytes % 23.7 Monocytes % 6.9 Eosinophils % 4.5 Basophils % 0.6 Absolute Neutrophils 6.0 Absolute Lymphocytes 2.2 Absolute Monocytes 0.6 Absolute Eosinophils 0.4 Absolute Basophils 0.1 Sodium 140.9 Potassium 3.6 Chloride 97 L Carbon Dioxide 32 H Anion Gap 12 BUN 20 Creatinine 0.95 Est GFR ( Amer) > 60 Est GFR (Non-Af Amer) > 60 Glucose 112 H Calcium 10.1 Total Bilirubin 0.3 Direct Bilirubin 0.2 Neonat Total Bilirubin Not Reportable Neonat Direct Bilirubin Not Reportable Neonat Indirect Bili Not Reportable AST 17 ALT 22 Alkaline Phosphatase 105 Total Protein 8.2 Albumin 4.7 Lipase 85.1 Urine Color YELLOW Urine Appearance TURBID Urine pH 5.0 Ur Specific [place] 1.027 Urine Protein NEGATIVE Urine Glucose (UA) NEGATIVE Urine Ketones NEGATIVE Urine Blood SMALL H Urine Nitrite NEGATIVE Urine Bilirubin NEGATIVE Urine Urobilinogen NEGATIVE Ur Leukocyte Esterase NEGATIVE Urine WBC (Auto) Urine RBC (Auto) Urine Bacteria (Auto) Squamous Epi Cells Auto 4 Amorphous Sediment Auto 1+ Urine Mucus (Auto) RARE Urine Ascorbic Acid NEGATIVE 09/10/18 18:10 WBC RBC Hgb Hct MCV MCH MCHC RDW Plt Count Seg Neutrophils % Lymphocytes % Monocytes % Eosinophils % Basophils % Absolute Neutrophils Absolute Lymphocytes Absolute Monocytes Absolute Eosinophils Absolute Basophils Sodium Potassium Chloride Carbon Dioxide Anion Gap BUN Creatinine Est GFR ( Amer) Est GFR (Non-Af Amer) Glucose Calcium Total Bilirubin Direct Bilirubin Neonat Total Bilirubin Neonat Direct Bilirubin Neonat Indirect Bili AST ALT Alkaline Phosphatase Total Protein Albumin Lipase Urine Color YELLOW Urine Appearance SLIGHTLY-CLOUDY Urine pH 5.0 Ur Specific [place] 1.034 Urine Protein NEGATIVE Urine Glucose (UA) NEGATIVE Urine Ketones NEGATIVE Urine Blood NEGATIVE Urine Nitrite NEGATIVE Urine Bilirubin NEGATIVE Urine Urobilinogen NEGATIVE Ur Leukocyte Esterase SMALL H Urine WBC (Auto) 9 Urine RBC (Auto) 5 Urine Bacteria (Auto) TRACE Squamous Epi Cells Auto 5 Amorphous Sediment Auto Urine Mucus (Auto) RARE Urine Ascorbic Acid NEGATIVE Abdomen/Pelvis CT 09/10/18 17:29 IMPRESSION: NO SIGNIFICANT OR ACUTE PROCESS IN THE ABDOMEN OR PELVIS. - Vital Signs Vital signs: Temp Pulse Resp BP Pulse Ox 98.2 F 72 20 123/83 100 09/10/18 19:13 09/10/18 19:13 09/10/18 12:50 09/10/18 19:13 09/10/18 19:13 - Laboratory Result Diagrams: 09/10/18 13:20 09/10/18 13:20 Laboratory results interpreted by me: 09/10/18 09/10/18 09/10/18 13:20 13:20 18:10 Chloride 97 L Carbon Dioxide 32 H Glucose 112 H Urine Blood SMALL H Ur Leukocyte Esterase SMALL H Discharge - Discharge Clinical Impression: Renal colic on right side UTI (urinary tract infection) Qualifiers: Urinary tract infection type: site unspecified Hematuria presence: with hematuria Qualified Code(s): N39.0 - Urinary tract infection, site not specified Condition: Stable Disposition: HOME, SELF-CARE Instructions: Urinary Tract Infection ([facility]) Additional Instructions: Please take the prescribed antibiotic, for the next 5 days, and please follow-up with your primary care physician. Prescriptions: Sulfamethoxazole/Trimethoprim [Bactrim Ds Tablet] 1 each PO BID #10 tablet RX: Tizanidine HCl [Zanaflex] 4 mg PO TID PRN #15 tablet PRN Reason: Muscle Spasms Referrals: LIYAH CHUNG MD [Primary Care Provider] - Follow up in 3-5 days
[2018-09-10 17:16] LABS: AMORPHOUS SEDIMENT,URINE 1+ /HPF; APPEARANCE,URINE TURBID; BILIRUBIN,URINE NEGATIVE (NEGATIVE); COLOR,URINE YELLOW; GLUCOSE, URINE NEGATIVE (NEGATIVE); KETONES,URINE NEGATIVE (NEGATIVE); LEUKOCYTE ESTERASE,URINE NEGATIVE (NEGATIVE); NITRITE,URINE NEGATIVE (NEGATIVE); PROTEIN,URINE NEGATIVE (NEGATIVE); URINE SPECIFIC GRAVITY 1.027; UROBILINOGEN,URINE NEGATIVE mg/dL (<2.0)
[2018-09-10] MEDS ORDERED: NORMAL SALINE 1000 ML 1,000 ML IV ONE (17:29)
[2018-09-10] MEDS ORDERED: FENTANYL CITRATE INJ/PF 100 MCG/2 ML AMPUL IV ONE (17:29)
[2018-09-10] MEDS ORDERED: ONDANSETRON HCL INJ/PF 4 MG/2 ML SDV IV ONE (17:29)
--- NOTE | 2018-09-10 18:14 | RADIOLOGY REPORT (SQ) ---
EXAM DESCRIPTION: CT ABD/PELVIS NO ORAL OR IV COMPLETED DATE/TIME: 09/10/2018 6:00 pm REASON FOR STUDY: right flank pain COMPARISON: CT abdomen pelvis 07/08/2014, 02/27/2012 TECHNIQUE: CT scan of the abdomen and pelvis performed without intravenous or oral contrast. Images reviewed with lung, soft tissue, and bone windows. Reconstructed coronal and sagittal MPR images revi ewed. All images stored on PACS. All CT scanners at this facility use dose modulation, iterative reconstruction, and/or weight based d osing when appropriate to reduce radiation dose to as low as reasonably achievable (ALARA). [facility]: Dose Right [facility]: CareDose [facility]: Dose Right [facility]: Teradose 4D [facility]: Efizity RADIATION DOSE: 19 mGy LIMITATIONS: None. FINDINGS: LOWER CHEST: No significant findings. No nodules or infiltrates. NON-CONTRASTED LIVER, SPLEEN, ADRENALS: Evaluation limited by lack of IV contrast. No identified sign ificant masses. PANCREAS: No masses. No peripancreatic inflammatory changes. GALLBLADDER: Surgically absent RIGHT KIDNEY AND URETER: No suspicious masses. Assessment limited by lack of IV contrast. No signif icant calcifications. No hydronephrosis or hydroureter. LEFT KIDNEY AND URETER: No suspicious masses. Assessment limited by lack of IV contrast. No signifi cant calcifications. No hydronephrosis or hydroureter. AORTA AND RETROPERITONEUM: No aneurysm. No retroperitoneal masses or adenopathy. BOWEL AND PERITONEAL CAVITY: No obvious masses or inflammatory changes. No free fluid. APPENDIX: Surgically absent PELVIS, BLADDER, AND ABDOMINAL WALL:No abnormal masses. No free fluid. Bladder normal. Post hysterec ramona. Bilateral normal size ovaries are adjacent to tubal ligation clips BONES: No significant findings. OTHER: No other significant finding. IMPRESSION: NO SIGNIFICANT OR ACUTE PROCESS IN THE ABDOMEN OR PELVIS. COMMENT: Quality ID # [id number]: Final reports with documentation of one or more dose reduction techniques (e.g., Automated exposure control, adjustment of the mA and/or kV according to patient size, use of iterative reconstruction technique) TECHNICAL DOCUMENTATION: JOB ID: [id number] [employer]- All Rights Reserved Reading location - IP/workstation name: [email or web address]
[2018-09-10 18:41] LABS: APPEARANCE,URINE SLIGHTLY-CLOUDY; BILIRUBIN,URINE NEGATIVE (NEGATIVE); COLOR,URINE YELLOW; GLUCOSE, URINE NEGATIVE (NEGATIVE); KETONES,URINE NEGATIVE (NEGATIVE); LEUKOCYTE ESTERASE,URINE SMALL (NEGATIVE); NITRITE,URINE NEGATIVE (NEGATIVE); PROTEIN,URINE NEGATIVE (NEGATIVE); URINE SPECIFIC GRAVITY 1.034; UROBILINOGEN,URINE NEGATIVE mg/dL (<2.0)
[2018-09-10 19:28] VITALS: BP 123/83
== END 2018-09-10 19:27 | disposition home or self-care (01) ==
LOC: ER 12:13
DX: N39.0 Urinary tract infection, site not specified (principal); N23 Unspecified renal colic; F17.210 Nicotine dependence, cigarettes, uncomplicated; G35 Multiple sclerosis; E03.9 Hypothyroidism, unspecified; I10 Essential (primary) hypertension; Z91.040 Latex allergy status; Z86.73 Personal history of transient ischemic attack (TIA), and cerebral infarction without residual deficits; Z90.49 Acquired absence of other specified parts of digestive tract; Z98.51 Tubal ligation status
CPT/HCPCS: 99284; 96361; 96374; 96375; 36415; 87086; 83690; 85025; 80053; 81001; 74176; A9270; J3010; J2405; J7030

== ENCOUNTER 2019-02-10 10:17 | Emergency (ER) | payer MEDICARE, MEDICAID ==
[2019-02-10] MEDS ORDERED: LIDOCAINE 4%/TETRACAINE 0.5%/EPI 0.18% 5 ML TOPICAL SOLN TOP ONE (11:01)
[2019-02-10] MEDS ORDERED: LORAZEPAM 1 MG TABLET PO ONE (11:01)
--- NOTE | 2019-02-10 11:01 | ER Document Report ---
HPI - HPI Time Seen by Provider: 02/10/19 10:32 Pain Level: 4 Notes: Patient is a 54-year-old female presenting to the emergency department chief complaint of vaginal abscess. Patient reports this is been present for approximately 2 days. She states that it has not drained but is causing her significant pain. She denies any history of abscesses in this area but states she has had abscesses to other parts of her body. She denies any fevers. She does report a history of MRSA. - REPRODUCTIVE Reproductive: DENIES: : Past Medical History - General Information source: Patient - Social History Smoking Status: Former Smoker Frequency of alcohol use: None Drug Abuse: None Family History: Reviewed & Not Pertinent, CAD, CVA, Hyperlipidemia, Hypertension Patient has suicidal ideation: No Patient has homicidal ideation: No - Past Medical History Cardiac Medical History: Reports: Hx Hypertension Denies: Hx Coronary Artery Disease, Hx Heart Attack Pulmonary Medical History: Denies: Hx Asthma, Hx Bronchitis, Hx COPD, Hx Pneumonia Neurological Medical History: Reports: Hx Cerebrovascular Accident - july 2015, Hx Migraine. Denies: Hx Seizures Endocrine Medical History: Reports: Hx Hypothyroidism Renal/ Medical History: Denies: Hx Peritoneal Dialysis GI Medical History: Reports: Hx Irritable Bowel. Denies: Hx Crohn's Disease, Hx Gastroesophageal Reflux Disease, Hx Hiatal Hernia, Hx Liver Failure, Hx Pancreatitis, Hx Ulcer Musculoskeletal Medical History: Reports Hx Arthritis, Denies Hx Fibromyalgia, Reports Hx Multiple Sclerosis, Denies Hx Muscular Dystrophy, Reports Hx Muscle Spasm, Reports Hx Musculoskeletal Deformity, Reports Hx Musculoskeletal Trauma Psychiatric Medical History: Reports: Hx Anxiety Denies: Hx Bipolar Disorder, Hx Dementia, Hx Depression, Hx Post Traumatic Stress Disorder, Hx Schizophrenia Traumatic Medical History: Reports: Hx Fractures Infectious Medical History: Reports: Hx C-Diff. Denies: Hx HIV Past Surgical History: Reports: Hx Appendectomy, Hx Breast Surgery - reduction, Hx Section - x 2, Hx Cholecystectomy, Hx Gynecologic Surgery - D & C, Hx Orthopedic Surgery - right ankle, lumbar spine, Hx Thyroid Surgery - parathyroid and part of thyroid, Hx Tubal Ligation. Denies: Hx Bowel Surgery, Hx Colostomy, Hx Coronary Artery Bypass Graft, Hx Gastric Bypass Surgery, Hx Herniorrhaphy, Hx Hysterectomy, Hx Mastectomy, Hx Pacemaker, Hx Tonsillectomy - Immunizations Immunizations up to date: Yes Hx Diphtheria, Pertussis, Tetanus Vaccination: Yes Vertical Provider Document - CONSTITUTIONAL Notes: PHYSICAL EXAMINATION: GENERAL: Well-appearing, well-nourished and in no acute distress. HEAD: Atraumatic, normocephalic. EYES: Pupils equal round and reactive to light, extraocular movements intact, conjunctiva are normal. ENT: Nares patent, oropharynx clear without exudates. Moist mucous membranes. NECK: Normal range of motion, supple without lymphadenopathy LUNGS: Breath sounds clear to auscultation bilaterally and equal. No wheezes rales or rhonchi. HEART: Regular rate and rhythm without murmurs ABDOMEN: Soft, nontender, nondistended abdomen. No guarding, no rebound. No masses appreciated. Female : Area of induration with fluctuance noted to right labia majora at the distal end. Musculoskeletal: Normal range of motion, no pitting or edema. No cyanosis. NEUROLOGICAL: Cranial nerves grossly intact. Normal speech, normal gait. Normal sensory, motor exams PSYCH: Normal mood, normal affect. SKIN: Warm, Dry, normal turgor, no rashes or lesions noted. - INFECTION CONTROL TRAVEL OUTSIDE OF THE [place] IN LAST 30 DAYS: No Course - Re-evaluation Re-evalutation: Abscess was incised and drained, patient tolerated well after premedication. See procedure note. Patient started on oral antibiotics. Patient encouraged to continue to do warm salt soaks and follow-up with primary care for a wound recheck. Patient verbalizes understanding and agreement with this plan. The patient's emergency department workup and current diagnosis were explained to the patient and or family. Follow-up instructions were provided. Medications if prescribed were discussed. Instructions for when to return to the emergency department including specific worrisome symptoms were discussed with the patient and/or family. - Vital Signs Vital signs: Temp Pulse Resp BP Pulse Ox 98.1 F 98 18 114/69 96 02/10/19 10:20 02/10/19 10:20 02/10/19 10:20 02/10/19 10:20 02/10/19 10:20 Procedures - Incision and Drainage Labial abscess Type: Simple Anesthetic type: 1% Lidocaine Blade size: 11 I&D procedure: Betadine prep applied Incision Method: Incision made by scalpel Discharge - Discharge Clinical Impression: Abscess, Encounter for incision and drainage procedure Condition: Stable Disposition: HOME, SELF-CARE Additional Instructions: You were seen for an abscess that required drainage. Please clean this area with soap and water twice daily and apply a topical antibiotic. Dress the area after each cleaning. Take the antibiotics as prescribed. Please return if you develop fever, vomiting, the pain at the site worsens, you notice spreading redness from the area, or you have any other symptoms that are concerning to you. Prescriptions: Sulfamethoxazole/Trimethoprim [Bactrim Ds Tablet] 1 tab PO BID #14 tablet Oxycodone HCl/Acetaminophen [Percocet 5-325 mg Tablet] 1 tab PO Q4H PRN #12 tablet PRN Reason: Forms: Return to Work Referrals: LIYAH CHUNG MD [Primary Care Provider] - Follow up as needed
[2019-02-10] MEDS ORDERED: OXYCODONE-ACETAMINOPHEN 5-325 MG TABLET PO ONE (11:21)
[2019-02-10 12:07] VITALS: BP 107/72
== END 2019-02-10 12:07 | disposition home or self-care (01) ==
LOC: ER 10:17
DX: N76.4 Abscess of vulva (principal); I10 Essential (primary) hypertension; Z86.14 Personal history of Methicillin resistant Staphylococcus aureus infection; Z87.891 Personal history of nicotine dependence
CPT/HCPCS: 56405; A9270 ×2; J3490; 99283